=== PATIENT | male | born 1995 | race Caucasian/White ===

== ENCOUNTER 2020-04-02 14:57 | Emergency (ER) | payer BC, SELFPAY ==
[2020-04-02 15:08] VITALS: BP 135/79; PULSE 83; RESP 16; TEMP 36.4; O2SAT 97; BMI 19.2
--- NOTE | 2020-04-02 15:08 | W.ED.ABDPA2 ---
HPI - Abdominal Pain General: Chief Complaint: Abdominal Pain Stated Complaint: abd pain Time Seen by Provider: 04/02/20 15:08 Source: patient Mode of arrival: ambulatory Limitations: no limitations History of Present Illness: HPI narrative: 24-year-old male comes in today with periumbilical pain to the abdomen. Patient reports pain for about 3 days. Patient thought he might of strained a muscle because he was moving a heavy air conditioner 2 days ago. Patient appears well. Patient appears in mild to moderate pain. MD elicited complaint: abdominal pain Associated Symptoms: Reports nausea Review of Systems General: Reports: 10 or more systems reviewed and unremarkable except in HPI and below GI: Reports: abdominal pain and nausea [facility] ED PFSH: Social History (Updated 04/02/20 @ 14:28 by Marylou Damon LPN) Smoking and tobacco status: current every day smoker smokeless tobacco Alcohol intake: never Physical Exam Const: COMMON NORMALS: no apparent distress and oriented x3 GENERAL APPEARANCE: cooperative HENMT: COMMON NORMALS: normocephalic, TM's normal bilaterally and external nose normal HEAD & SCALP: normal to inspection and normocephalic NOSE: external nose normal TYMPANIC MEMBRANE: TM's normal bilaterally MOUTH: oral and palatal mucosa normal THROAT: posterior oropharynx normal Eye: GENERAL EYE: normal appearance of both eyes Neck/C-Spine: COMMON NORMALS: full ROM Lymph: LYMPHATIC: no lymphadenopathy noted Chest: COMMONS NORMALS: inspection of chest normal Resp: COMMON NORMALS: normal respiratory effort EFFORT & INSPECTION: Yes able to speak in complete sentences Cardio: COMMON NORMALS: regular rate and regular rhythm RATE: regular rate RHYTHM: regular rhythm GI: AUSCULTATION: Yes normoactive bowel sounds PALPATION: Yes firm, Yes tender (periumbilical), No guarding and No rigid : COMMON NORMALS: Yes no CVA tenderness BLADDER/KIDNEY EXAM: Yes no CVA tenderness Back/Pelvis: COMMON NORMALS: no CVA tenderness and thoracic and lumbar spine normal to inspection Extremity: COMMON NORMALS: normal to inspection Neuro: COMMON NORMALS: oriented x3 and moves all extremities Psych: COMMON NORMALS: mental status grossly normal and cooperative Skin: COMMON NORMALS: no rashes or lesions noted GENERAL SKIN EXAM: no rashes or lesions noted Course Vital Signs: Vital signs: Vital Signs Temperature 97.6 F 04/02/20 15:08 Pulse Rate 83 04/02/20 15:08 Respiratory Rate 18 04/02/20 15:26 Blood Pressure 135/79 04/02/20 15:08 Pulse Oximetry 98 04/02/20 15:26 MDM - Abdominal Pain MDM Narrative: Medical decision making narrative: Patient comes in today for concerns of abdominal pain. Patient was seen at urgent care and was referred to the ER for further evaluation with concern of appendicitis. Patient reports nausea with the abdominal pain. Exam notes periumbilical tenderness. Normal bowel sounds. Vital signs are normal. Differential diagnosis includes appendicitis, renal calculi, cystitis, hernia, muscle strain. CT scan of the abdomen and pelvis was normal. Laboratory values were normal. Reviewed this with patient with recommendations for treatment for muscle strain. History of patient does report some heavy lifting that was new to patient over the last few days. Discussed with patient treatment with Tylenol and ibuprofen and then monitor for worsening signs and symptoms and high fever. Patient reports understanding and agreed to plan. Lab Data: Labs: Lab Results 04/02/20 04/02/20 04/02/20 Range/Units 15:24 15:29 15:29 WBC 7.0 (4.0-10.0) 10^3/ uL RBC 5.28 (4.1-5.3) 10^6/u L Hgb 15.7 (11.7-16.6) g/dL Hct 48.8 (42.0-52.0) % MCV 92.4 (80-94) fL MCH 29.7 (28.0-34.0) pg MCHC 32.2 (30.0-36.0) g/dL RDW 12.1 (12.1-15.1) % Plt Count 271 (130-400) 10^3/c mm MPV 9.5 (7.4-10.4) fL Neut % (Auto) 59.8 % Lymph % (Auto) 23.2 % [place] % (Auto) 8.6 % Eos % (Auto) 7.4 % Baso % (Auto) 0.9 % Neut # (Auto) 4.2 (1.8-7.7) 10^3/u L Lymph # (Auto) 1.6 (0.8-4.8) 10^3/u L [place] # (Auto) 0.6 (0.2-0.9) 10^3/u L Eos # (Auto) 0.5 (0.0-0.8) 10^3/u L Baso # (Auto) 0.1 (0.0-0.1) 10^3/u L Nucleated RBC % (a uto) 0 % Nucleated RBCs # 0.0 /100WBC Sodium 138 (136-145) mmol/L Potassium 4.1 (3.5-5.1) mmol/L Chloride 98 (98-107) mmol/L Carbon Dioxide 29 (22-29) mmol/L Anion Gap 15.1 (5-19) BUN 13 (6-20) mg/dL Creatinine 0.9 (0.7-1.2) mg/dL GFR Calculation 102.8 (90-130) mL/min Glucose 92 (65-115) mg/dL Calculated Osmolal ity 282 L (285-295) mOsm/k g Calcium 9.4 (8.5-10.5) mg/dL Total Bilirubin 0.2 (0.15-1.2) mg/dL AST 17 (0-40) U/L ALT 11 (0-41) U/L Alkaline Phosphata se 57 (40-130) IU/L Total Protein 7.2 (6.6-8.7) g/dL Albumin 4.7 (3.5-5.2) g/dL Globulin 2.5 (1.3-4.6) g/dL Lipase 29 (13-60) U/L Urine Color Straw (Yellow) Urine Appearance Clear (CLEAR) Urine pH 6 (5-7) Ur Specific Gravit y 1.005 (1.005-1.030) Urine Protein Neg (Negative) Urine Glucose (UA) Norm (Normal) Urine Ketones Negative (Negative) Urine Blood Neg (Negative) Urine Nitrate Negative (Negative) Urine Bilirubin Neg (NEGATIVE) Urine Urobilinogen Norm (Negative) mg/dL Ur Leukocyte Chanda ase Negative (Negative) Discharge Plan Discharge Patient Disposition: Home, Self-Care Clinical Impression: Abdominal pain, Muscle strain Condition: Stable Prescriptions: No Action carbamazepine [Tegretol XR] 200 mg tablet extended release 12 hr 200 mg PO BID RF: 0 Discharge Orders: Discharge Order (Routine); Ordered 04/02/20 Ordered By: Ramiro Hanson Referrals: Pierce Lopez MD [Primary Care Provider] - Discharge Diet: Usual diet Discharge Activity: Increase activity as tolerated Patient Instructions: Cholecystitis (ED), Abdominal Pain (ED) Activity Restrictions/Additional Instructions: Use Tylenol and ibuprofen as needed for pain. Drink plenty of water with medication. Activity as tolerated. Try to avoid straining or heavy lifting for the next week. Return to the ER for high fever or worsening symptoms. Follow-up with primary care in 1 week. Coding Level of Care Code ED Calibration Specialist for Karen Fwjosé Exam Comprehensive
--- NOTE | 2020-04-02 15:14 | CT_ITS ---
WS: [id number] CT ABDOMEN PELVIS TECHNIQUE: Contrast-enhanced CT of the abdomen and pelvis with coronal and sagittal reformatted image s. CLINICAL INFORMATION: periumbilical pain, nausea COMPARISON: None. DLP: 548.[address] scans at [facility] use at least one of these dose optimization techniques: automat ed exposure control; mA and/or kV adjustment per patient size (includes targeted exams where dose is matched to clinical indication); or iterative reconstruction. FINDINGS: Normal liver. Normal splenic vein and portal veins. Gallbladder is contracted. Normal GE junction. No rmal spleen. Adrenal glands are normal. Normal renal parenchymal enhancement. No hydronephrosis. Norm al pancreas. Normal caliber abdominal aorta. Lung bases are well aerated. Incidental bone island left ilium adjacent to the SI joint. No evidence of small or large bowel obstruction. No evidence of acute appendicitis. Appendix is air-filled and no rmal. No periaortic or pelvic lymphadenopathy. No inguinal lymphadenopathy. No free fluid in the pelv is. CT/CT abdomen pelvis w con* [id number] IMPRESSION: 1. No evidence of acute appendicitis. Appendix appears normal and air-filled. 2. No free fluid in the pelvis. 3. Normal bilateral renal parenchymal . No hydronephrosis. 4. Mild diffuse fatty infiltration liver. Gallbladder is contracted. 5. No acute appearing abdomen or pelvic findings.
[2020-04-02 15:26] VITALS: RESP 18; O2SAT 98
[2020-04-02 15:38] LABS: Basophils # 0.1 10^3/uL (0.0-0.1); Basophils % 0.9 %; Eosinophils # 0.5 10^3/uL (0.0-0.8); Eosinophils % 7.4 %; Hematocrit 48.8 % (42.0-52.0); Hemoglobin 15.7 g/dL (11.7-16.6); Lymphocytes # 1.6 10^3/uL (0.8-4.8); Lymphocytes % 23.2 %; Mean Corpuscular HGB Conc 32.2 g/dL (30.0-36.0); Mean Corpuscular Hemoglobin 29.7 pg (28.0-34.0); Mean Corpuscular Volume 92.4 fL (80-94); Mean Platelet Volume 9.5 fL (7.4-10.4); Monocytes # 0.6 10^3/uL (0.2-0.9); Monocytes % 8.6 %; Neutrophils # 4.2 10^3/uL (1.8-7.7); Neutrophils % 59.8 %; Nucleated Red Blood Cells % 0 %; Platelet Count 271 10^3/cmm (130-400); Red Blood Count 5.28 10^6/uL (4.1-5.3); Red Cell Distribution Width 12.1 % (12.1-15.1)
[2020-04-02] MEDS: iohexol 300 mg/mL 100 mL Btl IV (15:46)
[2020-04-02 15:54] LABS: Add Urine Microscopic? NO
[2020-04-02 15:59] LABS: Alanine Aminotransferase 11 U/L (0-41); Albumin Level 4.7 g/dL (3.5-5.2); Alkaline Phosphatase 57 IU/L (40-130); Anion Gap 15.1 (5-19); Aspartate Amino Transferase 17 U/L (0-40); Blood Urea Nitrogen 13 mg/dL (6-20); Calcium 9.4 mg/dL (8.5-10.5); Carbon Dioxide 29 mmol/L (22-29); Chloride 98 mmol/L (98-107); Globulin 2.5 g/dL (1.3-4.6); Glomerular Filtration Rate 102.8 mL/min (90-130); Glucose 92 mg/dL (65-115); Lipase 29 U/L (13-60); Osmolality Calculated 282 mOsm/kg (285-295); Potassium 4.1 mmol/L (3.5-5.1); Sodium 138 mmol/L (136-145); Total Bilirubin 0.2 mg/dL (0.15-1.2); Total Protein 7.2 g/dL (6.6-8.7)
[2020-04-02 16:01] LABS: Urine Appearance Clear (CLEAR); Urine Color Straw (Yellow)
[2020-04-02 16:02] LABS: Bilirubin Urine Neg (NEGATIVE); Blood Urine Neg (Negative); Glucose Urine UA Norm (Normal); Ketones Urine Negative (Negative); Leukocyte Esterase Urine Negative (Negative); Nitrate Urine Negative (Negative); Protein Urine Neg (Negative); Specific Gravity, Urine 1.005 (1.005-1.030); Urobilinogen Urine Norm (Negative); pH Urine 6 (5-7)
[2020-04-02 16:22] VITALS: BP 135/79; PULSE 83; RESP 15; O2SAT 97
== END 2020-04-02 16:23 | disposition home or self-care (01) ==
PROVIDERS: Emergency Provider Nurse Practitioner Family; PCP Family Medicine
DX: R10.9 Unspecified abdominal pain (principal); T14.8XXA Other injury of unspecified body region, initial encounter; X58.XXXA Exposure to other specified factors, initial encounter; F17.290 Nicotine dependence, other tobacco product, uncomplicated
CPT/HCPCS: 12345; 36415; 74177; 80053; 81000; 81003; 83690; 85025; 99282; 99283; A9270; Q9967

== ENCOUNTER 2020-04-20 21:12 | Emergency (ER) | payer BC, SELFPAY ==
[2020-04-20 21:22] VITALS: BP 142/82; PULSE 102; RESP 16; TEMP 37.2; O2SAT 96; BMI 19.2
--- NOTE | 2020-04-20 21:48 | CTR_ITS ---
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 Axial, coronal and sagittal reformatted images were created and reviewed. 3D rendering: MIP and/or 3D reconstructed images were created by the technologist. Radiation optimization: All CT scans at this facility use at least one of these dose optimization techniques: automated exposure control; mA and/or kV adjustment per patient size (includes targeted exams where dose is matched to clinical indication); or iterative reconstruction. Contrast material: OMNI 350; Contrast volume: 95 ml; Contrast route: 20G; COMPARISON: CT head wo con* [id number] 04/20/2020 10:10 PM RADIATION DOSE METRICS: Total DLP: 1603.96 mGy-cm FINDINGS: Anterior cerebral arteries: No occlusion or significant stenosis. No aneurysm. Right internal carotid artery: Intracranial segment is patent with no significant stenosis or occlusion. No aneurysm. Right middle cerebral artery: No occlusion or significant stenosis. No aneurysm. Right posterior cerebral artery: No occlusion or significant stenosis. No aneurysm. Right vertebral artery: No occlusion or significant stenosis. No aneurysm. Left internal carotid artery: Intracranial segment is patent with no significant stenosis or occlusion. No aneurysm. Left middle cerebral artery: No occlusion or significant stenosis. No aneurysm. Left posterior cerebral artery: No occlusion or significant stenosis. No aneurysm. Left vertebral artery: No occlusion or significant stenosis. No aneurysm. Basilar artery: No occlusion or significant stenosis. No aneurysm. IMPRESSION: No large vessel stenosis or occlusion. 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 Axial, coronal and sagittal reformatted images were created and reviewed. 3D rendering: MIP and/or 3D reconstructed images were created by the technologist. Radiation optimization: All CT scans at this facility use at least one of these dose optimization techniques: automated exposure control; mA and/or kV adjustment per patient size (includes targeted exams where dose is matched to clinical indication); or iterative reconstruction. Contrast material: OMNI 350; Contrast volume: 95 ml; Contrast route: 20G; COMPARISON: CT head wo con* [id number] 04/20/2020 10:10 PM RADIATION DOSE METRICS: Total DLP: 1603.96 mGy-cm FINDINGS: Right common carotid artery: No stenosis. No dissection or occlusion. Right internal carotid artery: Normal. Extracranial segment patent with no significant stenosis. No dissection or occlusion. Right external carotid artery: No occlusion or stenosis of the origin. Right vertebral artery: No stenosis. No dissection or occlusion. Left common carotid artery: No stenosis. No dissection or occlusion. Left internal carotid artery: Normal. Extracranial segment patent with no significant stenosis. No dissection or occlusion. Left external carotid artery: No occlusion or stenosis of the origin. Left vertebral artery: No stenosis. No dissection or occlusion. Bones/joints: No acute osseous abnormality. Soft tissues: Unremarkable. CT/CT angio headneck* [id number] IMPRESSION: No stenosis or occlusion. REFERENCES: NASCET CRITERIA. The degree of internal carotid artery stenosis is based on NASCET criteria. Normal is no stenosis. Mild is less than 50% stenosis. Moderate is 50-69% stenosis. Severe is 70% to 99% stenosis. Total occlusion is no detectable patent lumen. Radiation Dose CTDIVOL = (mGy): DLP = 1603.96~1603.96 (mGy-cm)
--- NOTE | 2020-04-20 21:51 | W.ED.GENADLT ---
Documented by User: Janeth Villa MD 04/21/20 20:35 HPI - General Adult General: Chief complaint: General Medical Stated complaint: r side numbness Time Seen by Provider: 04/20/20 21:30 History of Present Illness: HPI narrative: Patient is a 24-year-old male presenting with complaints of numbness on the right side of his body. 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 He said at that time they wanted to do surgery on it but he was afraid to have the surgery so they have just been monitoring it on a yearly basis. His first MRI was done in [facility]. He has had one done in [place]. The most recent one was done in [place] at [facility] and was ordered by Dr. Cruz - neurosurgeon. The patient reports that he started having numbness in his right foot this morning. It has been going on all day. A few hours ago he developed numbness on the right side of his trunk. He said the symptoms he had 4 years ago when this was first diagnosed were similar but he did not have the numbness in his foot. 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 He had surgery on 1 of them due to seizures. He has not had a seizure in 9 years. He has no other symptoms today. He does take carbamazepine and pantoprazole. He was recently started on the pantoprazole after an ER visit for abdominal pain. Associated symptoms: Deny chest pain, dyspnea, headache(s), malaise, nausea, rash or vomiting Review of Systems General: Reports: 10 or more systems reviewed and unremarkable except in HPI and below Const: Denies: fever(s), chills, fatigue or malaise Eyes: Denies: change in vision ENMT: Denies: odynophagia Card: Denies: chest pain or swelling of feet/ankles Resp: Denies: dyspnea, productive cough or non-productive cough GI: Denies: abdominal pain, nausea or vomiting : Denies: flank pain Musc: Denies: neck pain or back pain Skin/Breast: Denies: rash Neuro: Reports: numbness in extremities; Denies: headache(s) or weakness in extremities Antonio/Lymph: Denies: easy bruising or easy bleeding [facility] ED PFSH: Family History Grandfather Cancer Grandmother Diabetes Social History Smoking and tobacco status: never smoked Alcohol intake: never Marital status: Single Current occupational status: employed Physical Exam Const: COMMON NORMALS: no acute distress, patient oriented x3, no limitations and alert GENERAL APPEARANCE: cooperative and comfortable HENMT: HEAD & SCALP: normal to inspection FACE & SINUS: normal facial exam Eye: GENERAL EYE: appearance normal, both eyes and all related structures Neck/C-Spine: COMMON NORMALS: supple, no meningeal signs and no JVD Chest: COMMONS NORMALS: normal inspection of the chest Resp: COMMON NORMALS: normal respiratory effort, No use of accessory muscles and clear to auscultation bilaterally AUSCULTATION: clear to auscultation bilaterally Cardio: COMMON NORMALS: no JVD, regular rate, regular rhythm and No murmurs present (Cardio) RATE: regular rate RHYTHM: regular rhythm GI: COMMON NORMALS: Normal to inspection, nondistended, normoactive bowel sounds present, Soft to palpation and non-tender INSPECTION: Yes normal to inspection AUSCULTATION: Yes normoactive bowel sounds PALPATION: Yes Soft to palpation Back/Pelvis: COMMON NORMALS: thoracic and lumbar spine normal to inspection Extremity: COMMON NORMALS: normal to inspection Neuro: COMMON NORMALS: patient oriented x3, moves all extremities and no focal motor deficits SENSORIUM/ORIENTATION: Yes alert MENINGEAL SIGNS: Yes no meningeal signs OTHER: Patient notes decreased sensation mostly on the medial aspect of his lower leg starting just above his knee and going down encompassing his entire foot. He also describes decreased sensation over the right side of his back and lateral rib cage from the scapula to the top of the iliac crest. He has no abnormal sensation or movement in his arm. Psych: COMMON NORMALS: mental status grossly normal, cooperative and normal affect Skin: COMMON NORMALS: no rashes or lesions noted and turgor normal GENERAL SKIN EXAM: no rashes or lesions noted and turgor normal Course Vital Signs: Vital signs: Vital Signs Temperature 98.9 F 04/20/20 21:22 Pulse Rate 66 04/21/20 00:20 Respiratory Rate 16 04/21/20 00:20 Blood Pressure 113/72 04/21/20 00:20 Pulse Oximetry 97 04/21/20 00:[address] [facility] - General Adult Lab Data: Labs: Lab Results 04/20/20 04/20/20 Range/Units 21:52 21:52 WBC 6.2 (4.0-10.0) 10^3/ uL RBC 4.39 (4.1-5.3) 10^6/u L Hgb 13.5 (11.7-16.6) g/dL Hct 40.5 L (42.0-52.0) % MCV 92.3 (80-94) fL MCH 30.8 (28.0-34.0) pg MCHC 33.3 (30.0-36.0) g/dL RDW 11.9 L (12.1-15.1) % Plt Count 243 (130-400) 10^3/c mm MPV 9.2 (7.4-10.4) fL Neut % (Auto) 58.9 % Lymph % (Auto) 24.4 % [place] % (Auto) 11.5 % Eos % (Auto) 4.5 % Baso % (Auto) 0.5 % Neut # (Auto) 3.7 (1.8-7.7) 10^3/u L Lymph # (Auto) 1.5 (0.8-4.8) 10^3/u L [place] # (Auto) 0.7 (0.2-0.9) 10^3/u L Eos # (Auto) 0.3 (0.0-0.8) 10^3/u L Baso # (Auto) 0.0 (0.0-0.1) 10^3/u L Nucleated RBC % (a uto) 0 % Nucleated RBCs # 0.0 /100WBC Sodium 143 (136-145) mmol/L Potassium 3.4 L (3.5-5.1) mmol/L Chloride 105 (98-107) mmol/L Carbon Dioxide 27 (22-29) mmol/L Anion Gap 14.4 (5-19) BUN 11 (6-20) mg/dL Creatinine 0.9 (0.7-1.2) mg/dL GFR Calculation 102.8 (90-130) mL/min Glucose 118 H (65-115) mg/dL Calculated Osmolal ity 293 (285-295) mOsm/k g Calcium 9.6 (8.5-10.5) mg/dL Total Bilirubin 0.2 (0.15-1.2) mg/dL AST 14 (0-40) U/L ALT 8 (0-41) U/L Alkaline Phosphata se 49 (40-130) IU/L Total Protein 6.5 L (6.6-8.7) g/dL Albumin 4.2 (3.5-5.2) g/dL Globulin 2.3 (1.3-4.6) g/dL Discharge Plan Discharge Patient Disposition: Home, Self-Care Clinical Impression: Paresthesia Condition: Stable Prescriptions: New Medrol (Chris) 4 mg tablets,dose pack See Rx Instructions .ROUTE .COMPLEX Qty: 21 RF: 0 No Action carbamazepine [Tegretol XR] 200 mg tablet extended release 12 hr 200 mg PO BID RF: 0 pantoprazole 40 mg tablet,delayed release (DR/EC) 40 mg PO QAM Qty: 90 RF: 3 Discharge Orders: Discharge Order (Routine); Ordered 04/20/20 Ordered By: Chance Bailey Referrals: Pierce Lopez MD [Primary Care Provider] - 4-7 days Discharge Diet: Usual diet Discharge Activity: Increase activity as tolerated Patient Instructions: Paresthesia (ED) Activity Restrictions/Additional Instructions: Return for progressive numbness despite treatment, weakness, other concerning symptoms. See your neurosurgeon in follow-up. Discharge Date/Time: 04/21/20 00:22 Coding Level of Care Code ED Travel Sales Consultant for Chg Fwd Exam Comprehensive Documented by User: Chance Bailey DO 04/21/20 00:51 HPI - General Adult General: Chief complaint: General Medical Stated complaint: r side numbness Time Seen by Provider: 04/20/20 21:30 PFSH ED PFSH: Family History Grandfather Cancer Grandmother Diabetes Social History Smoking and tobacco status: never smoked Alcohol intake: never Marital status: Single Current occupational status: employed Course Vital Signs: Vital signs: Vital Signs Temperature 98.9 F 04/20/20 21:22 Pulse Rate 66 04/21/20 00:20 Respiratory Rate 16 04/21/20 00:20 Blood Pressure 113/72 04/21/20 00:20 Pulse Oximetry 97 04/21/20 00:20 MDM - General Adult MDM Narrative: Medical decision making narrative: 24-year-old male with the above history. He was checked out to me by Dr. Villa at shift change. This was to follow-up on his CT of the head, as well as his CTA of the head and neck. They did not show any significant stenosis or problem with his AVM history. He is simply having paresthesias at this point. We will try decreasing dose of steroid over the next couple of days for his symptoms. He has neurosurgery follow-up and was counseled on close follow-up with them. Lab Data: Labs: Lab Results 04/20/20 04/20/20 Range/Units 21:52 21:52 WBC 6.2 (4.0-10.0) 10^3/ uL RBC 4.39 (4.1-5.3) 10^6/u L Hgb 13.5 (11.7-16.6) g/dL Hct 40.5 L (42.0-52.0) % MCV 92.3 (80-94) fL MCH 30.8 (28.0-34.0) pg MCHC 33.3 (30.0-36.0) g/dL RDW 11.9 L (12.1-15.1) % Plt Count 243 (130-400) 10^3/c mm MPV 9.2 (7.4-10.4) fL Neut % (Auto) 58.9 % Lymph % (Auto) 24.4 % [place] % (Auto) 11.5 % Eos % (Auto) 4.5 % Baso % (Auto) 0.5 % Neut # (Auto) 3.7 (1.8-7.7) 10^3/u L Lymph # (Auto) 1.5 (0.8-4.8) 10^3/u L [place] # (Auto) 0.7 (0.2-0.9) 10^3/u L Eos # (Auto) 0.3 (0.0-0.8) 10^3/u L Baso # (Auto) 0.0 (0.0-0.1) 10^3/u L Nucleated RBC % (a uto) 0 % Nucleated RBCs # 0.0 /100WBC Sodium 143 (136-145) mmol/L Potassium 3.4 L (3.5-5.1) mmol/L Chloride 105 (98-107) mmol/L Carbon Dioxide 27 (22-29) mmol/L Anion Gap 14.4 (5-19) BUN 11 (6-20) mg/dL Creatinine 0.9 (0.7-1.2) mg/dL GFR Calculation 102.8 (90-130) mL/min Glucose 118 H (65-115) mg/dL Calculated Osmolal ity 293 (285-295) mOsm/k g Calcium 9.6 (8.5-10.5) mg/dL Total Bilirubin 0.2 (0.15-1.2) mg/dL AST 14 (0-40) U/L ALT 8 (0-41) U/L Alkaline Phosphata se 49 (40-130) IU/L Total Protein 6.5 L (6.6-8.7) g/dL Albumin 4.2 (3.5-5.2) g/dL Globulin 2.3 (1.3-4.6) g/dL Discharge Plan Discharge Patient Disposition: Home, Self-Care Clinical Impression: Paresthesia Condition: Stable Prescriptions: New Medrol (Chris) 4 mg tablets,dose pack See Rx Instructions .ROUTE .COMPLEX Qty: 21 RF: 0 No Action carbamazepine [Tegretol XR] 200 mg tablet extended release 12 hr 200 mg PO BID RF: 0 pantoprazole 40 mg tablet,delayed release (DR/EC) 40 mg PO QAM Qty: 90 RF: 3 Discharge Orders: Discharge Order (Routine); Ordered 04/20/20 Ordered By: Chance Bailey Referrals: Pierec Lopez MD [Primary Care Provider] - 4-7 days Discharge Diet: Usual diet Discharge Activity: Increase activity as tolerated Patient Instructions: Paresthesia (ED) Activity Restrictions/Additional Instructions: Return for progressive numbness despite treatment, weakness, other concerning symptoms. See your neurosurgeon in follow-up. Discharge Date/Time: 04/21/20 00:22 Coding Level of Care Code ED Travel Sales Consultant for Karen Fwd Exam Comprehensive
--- NOTE | 2020-04-20 21:54 | CTR_ITS ---
PROCEDURE INFORMATION: Exam: CT Head Without Contrast Exam date and time: 04/20/2020 10:03 PM Age: 24 years old Clinical indication: Numbness / parasthesia; Right; Prior surgery; Surgery date: 6+ months; Surgery type: Craniotomy for avm; Patient HX: C/O R sided numbness TECHNIQUE: Imaging protocol: Computed tomography of the head without contrast. Axial, coronal and sagittal reformatted images were created and reviewed. Radiation optimization: All CT scans at this facility use at least one of these dose optimization techniques: automated exposure control; mA and/or kV adjustment per patient size (includes targeted exams where dose is matched to clinical indication); or iterative reconstruction. COMPARISON: US Soft Tissue Head Neck [id number] 06/04/2019 10:06 PM RADIATION DOSE METRICS: Total DLP: 870.2 mGy-cm FINDINGS: Brain: Multiple scattered areas of ill-defined, predominantly rounded/ovoid hyperattenuation, predominantly supratentorial but also in the right parasagittal devin, measuring up to approximately 2.9 x 2.2 cm in the right parietal lobe. Left frontal and left temporal encephalomalacia. No CT evidence of acute territorial infarction. No significant mass effect or midline shift. Basal cisterns patent. Ventricles: Normal in size and configuration. Cavum septum pellucidum. Bones/joints: No acute osseous abnormality. Postsurgical changes associated with prior left frontal craniotomy. Chronic deformity of the left temporal bone. Sinuses: Mild ethmoid mucosal thickening. Mastoid air cells: Grossly unremarkable. Soft tissues: Grossly unremarkable. CT/CT head wo con* [id number] IMPRESSION: 1. Multiple scattered areas of ill-defined, predominantly rounded/ovoid hyperattenuation, as described above. 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 Associated intralesional/perilesional blood products cannot be entirely excluded. Metastatic disease is considered unlikely given the patient's age but could produce a similar appearance. Comparison with the patient's prior imaging is recommended to assess for any interval change. 2. Additional findings, as above. Radiation Dose CTDIVOL = (mGy): DLP = 870.2 (mGy-cm)
[2020-04-20 21:58] LABS: Basophils % 0.5 %; Eosinophils # 0.3 10^3/uL (0.0-0.8); Eosinophils % 4.5 %; Hematocrit 40.5 % (42.0-52.0); Hemoglobin 13.5 g/dL (11.7-16.6); Lymphocytes # 1.5 10^3/uL (0.8-4.8); Lymphocytes % 24.4 %; Mean Corpuscular HGB Conc 33.3 g/dL (30.0-36.0); Mean Corpuscular Hemoglobin 30.8 pg (28.0-34.0); Mean Corpuscular Volume 92.3 fL (80-94); Mean Platelet Volume 9.2 fL (7.4-10.4); Monocytes # 0.7 10^3/uL (0.2-0.9); Monocytes % 11.5 %; Neutrophils # 3.7 10^3/uL (1.8-7.7); Neutrophils % 58.9 %; Nucleated Red Blood Cells % 0 %; Platelet Count 243 10^3/cmm (130-400); Red Blood Count 4.39 10^6/uL (4.1-5.3); Red Cell Distribution Width 11.9 % (12.1-15.1); White Blood Count 6.2 10^3/uL (4.0-10.0)
[2020-04-20 22:18] LABS: Alanine Aminotransferase 8 U/L (0-41); Albumin Level 4.2 g/dL (3.5-5.2); Alkaline Phosphatase 49 IU/L (40-130); Anion Gap 14.4 (5-19); Aspartate Amino Transferase 14 U/L (0-40); Blood Urea Nitrogen 11 mg/dL (6-20); Calcium 9.6 mg/dL (8.5-10.5); Carbon Dioxide 27 mmol/L (22-29); Chloride 105 mmol/L (98-107); Globulin 2.3 g/dL (1.3-4.6); Glomerular Filtration Rate 102.8 mL/min (90-130); Glucose 118 mg/dL (65-115); Osmolality Calculated 293 mOsm/kg (285-295); Potassium 3.4 mmol/L (3.5-5.1); Sodium 143 mmol/L (136-145); Total Bilirubin 0.2 mg/dL (0.15-1.2); Total Protein 6.5 g/dL (6.6-8.7)
[2020-04-20] MEDS: iohexol 350 mg/mL 100 mL Btl IV (22:28)
[2020-04-20 22:56] VITALS: BP 110/63; PULSE 65; RESP 16; O2SAT 100
[2020-04-21] MEDS: dexamethasone 4 mg/mL INJ 8 MG IVP (00:02)
[2020-04-21 00:20] VITALS: BP 113/72; PULSE 66; RESP 16; O2SAT 97
== END 2020-04-21 00:22 | disposition home or self-care (01) ==
PROVIDERS: Emergency Medicine; Emergency Provider Emergency Medicine; PCP Family Medicine
DX: R20.2 Paresthesia of skin (principal)
CPT/HCPCS: 12345; 70450; 70496; 70498; 80053; 85025; 96374; 96375; 99282; 99283; J1100; Q9967

== ENCOUNTER 2020-04-22 20:41 | Emergency (ER) | payer BC, SELFPAY ==
[2020-04-22 21:02] VITALS: PULSE 116; RESP 18; TEMP 36.9; O2SAT 96; BMI 19.2
--- NOTE | 2020-04-22 21:20 | ED_ITS ---
HPI - Weakness General: Chief complaint: Weakness Stated complaint: numbness Time Seen by Provider: 04/22/20 21:12 Source: patient Mode of arrival: ambulatory Limitations: no limitations History of Present Illness: HPI Narrative: 24-year-old male who was seen here paresthesias 2 days ago. He has a history of callus in his cervical spine years ago and gets intermittent numbness. Patient has an appointment with his neurosurgeon next week. He states that he had increasing numbness in his right leg and across his chest. He denies any back pain. He states he has paraspinal neck pain currently rates a 3 out of 10. Denies any headache. He denies any worsening or improving factors. Denies any fevers. MD Complaint: generalized weakness Onset (ago): day(s) Associated symptoms: Denies chest pain, chills, dysuria, easy bruising, fever(s), headache(s), nausea or vomiting Review of Systems Const: Denies: fever(s), chills, body aches or change in appetite Eyes: Denies: blurry vision or eye discomfort ENMT: Denies: throat pain or dental pain Card: Denies: chest pain Resp: Denies: dyspnea GI: Denies: abdominal pain, nausea, vomiting or diarrhea : Denies: dysuria Musc: Denies: neck pain or back pain Skin/Breast: Denies: rash Neuro: Reports: numbness in extremities; Denies: headache(s) Psych: Denies: depression Antonio/Lymph: Denies: easy bruising All/Imm: Denies: urticaria PFSH ED PFSH: Family History Grandfather Cancer Grandmother Diabetes Social History Smoking and tobacco status: never smoked Alcohol intake: never Marital status: Single Current occupational status: employed Physical Exam Const: COMMON NORMALS: no acute distress, patient oriented x3 and healthy appearing HENMT: COMMON NORMALS: normocephalic and atraumatic HEAD & SCALP: normocephalic and atraumatic Eye: COMMON NORMALS: Equal, round and reactive pupils present and EOMs intact bilaterally PUPIL: Yes Equal, round and reactive pupils present Neck/C-Spine: COMMON NORMALS: full ROM and supple Chest: COMMONS NORMALS: normal inspection of the chest and normal palpation of entire chest wall Resp: COMMON NORMALS: normal respiratory effort, No retractions, No use of accessory muscles and clear to auscultation bilaterally AUSCULTATION: clear to auscultation bilaterally Cardio: COMMON NORMALS: regular rate, regular rhythm and No murmurs present (Cardio) RATE: regular rate RHYTHM: regular rhythm GI: COMMON NORMALS: Normal to inspection, nondistended, normoactive bowel sounds present, Soft to palpation, non-tender and no masses PALPATION: Yes Soft to palpation Extremity: COMMON NORMALS: normal to inspection and full ROM Neuro: COMMON NORMALS: patient oriented x3, moves all extremities and no focal motor deficits Psych: COMMON NORMALS: mental status grossly normal, Normal thought process present and cooperative THOUGHT PROCESS: Normal thought process present Skin: COMMON NORMALS: no rashes or lesions noted and no wounds GENERAL SKIN EXAM: no rashes or lesions noted Course Vital Signs: Vital signs: Vital Signs Temperature 98.4 F 04/22/20 21:02 Pulse Rate 116 H 04/22/20 21:02 Respiratory Rate 18 04/22/20 21:02 Pulse Oximetry 96 04/22/20 21:02 MDM - Weakness MDM Narrative: Medical decision making narrative: Patient presents here with paresthesias in his leg along with chest along with neck pain. He has no low back pain and no signs of acute cord compression. Patient does not require an emergent MRI. Patient had a CT 2 days ago it was normal. Patient is stable for discharge and is to follow-up with his neurologist as scheduled and also we will try to get him neurosurgery follow-up here. Patient is to return if worsening. He understands and agrees to plan. Lab Data: Labs: Lab Results 04/22/20 04/22/20 Range/Units 21:38 21:38 WBC 7.2 (4.0-10.0) 10^3/ uL RBC 4.50 (4.1-5.3) 10^6/u L Hgb 13.6 (11.7-16.6) g/dL Hct 41.3 L (42.0-52.0) % MCV 91.8 (80-94) fL MCH 30.2 (28.0-34.0) pg MCHC 32.9 (30.0-36.0) g/dL RDW 12.0 L (12.1-15.1) % Plt Count 249 (130-400) 10^3/c mm MPV 9.4 (7.4-10.4) fL Neut % (Auto) 68.2 % Lymph % (Auto) 23.1 % [place] % (Auto) 7.8 % Eos % (Auto) 0.4 % Baso % (Auto) 0.4 % Neut # (Auto) 4.9 (1.8-7.7) 10^3/u L Lymph # (Auto) 1.7 (0.8-4.8) 10^3/u L [place] # (Auto) 0.6 (0.2-0.9) 10^3/u L Eos # (Auto) 0.0 (0.0-0.8) 10^3/u L Baso # (Auto) 0.0 (0.0-0.1) 10^3/u L Nucleated RBC % (a uto) 0 % Nucleated RBCs # 0.0 /100WBC Sodium 141 (136-145) mmol/L Potassium 3.6 (3.5-5.1) mmol/L Chloride 101 (98-107) mmol/L Carbon Dioxide 28 (22-29) mmol/L Anion Gap 15.6 (5-19) BUN 13 (6-20) mg/dL Creatinine 1.0 (0.7-1.2) mg/dL GFR Calculation 91.0 (90-130) mL/min Glucose 105 (65-115) mg/dL Calculated Osmolal ity 289 (285-295) mOsm/k g Calcium 8.8 (8.5-10.5) mg/dL Discharge Plan Discharge Patient Disposition: Home, Self-Care Clinical Impression: Paresthesia Condition: Stable Prescriptions: No Action carbamazepine [Tegretol XR] 200 mg tablet extended release 12 hr 200 mg PO BID RF: 0 pantoprazole 40 mg tablet,delayed release (DR/EC) 40 mg PO QAM Qty: 90 RF: 3 ibuprofen 200 mg Tablet 200 mg PO Q6H PRN (Reason: Pain) RF: 0 methylprednisolone [Medrol (Chris)] 4 mg tablets,dose pack See Rx Instructions .ROUTE .COMPLEX Qty: 21 RF: 0 Discharge Orders: Discharge Order (Routine); Ordered 04/22/20 Ordered By: Tasha Benton Referrals: Pierce Lopez MD [Primary Care Provider] - Sukumar Vivar MD [Physician] - 1-3 days Discharge Diet: Advance as tolerated Discharge Activity: Resume usual activity Patient Instructions: Paresthesia (ED) Coding Level of Care Code ED Carpenter Repairer for Chg Fwd Exam Comprehensive
[2020-04-22 21:44] LABS: Basophils % 0.4 %; Eosinophils % 0.4 %; Hematocrit 41.3 % (42.0-52.0); Hemoglobin 13.6 g/dL (11.7-16.6); Lymphocytes # 1.7 10^3/uL (0.8-4.8); Lymphocytes % 23.1 %; Mean Corpuscular HGB Conc 32.9 g/dL (30.0-36.0); Mean Corpuscular Hemoglobin 30.2 pg (28.0-34.0); Mean Corpuscular Volume 91.8 fL (80-94); Mean Platelet Volume 9.4 fL (7.4-10.4); Monocytes # 0.6 10^3/uL (0.2-0.9); Monocytes % 7.8 %; Neutrophils # 4.9 10^3/uL (1.8-7.7); Neutrophils % 68.2 %; Nucleated Red Blood Cells % 0 %; Platelet Count 249 10^3/cmm (130-400); White Blood Count 7.2 10^3/uL (4.0-10.0)
[2020-04-22 22:02] LABS: Anion Gap 15.6 (5-19); Blood Urea Nitrogen 13 mg/dL (6-20); Calcium 8.8 mg/dL (8.5-10.5); Carbon Dioxide 28 mmol/L (22-29); Chloride 101 mmol/L (98-107); Glucose 105 mg/dL (65-115); Osmolality Calculated 289 mOsm/kg (285-295); Potassium 3.6 mmol/L (3.5-5.1); Sodium 141 mmol/L (136-145)
[2020-04-22] MEDS: diphenhydrAMINE 50 mg/mL SDV 1mL IVP (22:13)
[2020-04-22] MEDS: metoclopramide 5 mg/mL SDV 2 mL 10 MG IVP (22:13)
[2020-04-22] MEDS: LORazepam 2 mg/mL INJ 1 mL 1 MG IVP (22:33)
[2020-04-22 22:58] VITALS: BP 109/70; PULSE 84; RESP 16; O2SAT 97
--- NOTE | 2020-04-24 08:43 | DCPLANNER ---
physical plant manager had message to schedule a follow up appointment for patient with Dr. Vivar. physical plant manager called [facility], spoke with Raysa, gave clinic patients information. physical plant manager was told that patients information would be printed and given to Kendell for review. Clinic will call caseworker intake and patient with appointment information.
--- NOTE | 2020-04-29 09:13 | DCPLANNER ---
Kendell from ortho called porter sample case stating that patient declined referral to Dr. Valero office.
== END 2020-04-22 23:00 | disposition home or self-care (01) ==
PROVIDERS: Emergency Provider Emergency Medicine; PCP Family Medicine
DX: R20.2 Paresthesia of skin (principal)
CPT/HCPCS: 12345; 36415; 80048; 85025; 96374; 96375; 99282; 99283; J1200; J2060; J2765

== ENCOUNTER 2021-01-09 23:15 | Emergency (ER) | payer OTHER, SELFPAY ==
[2021-01-09 23:34] VITALS: BP 124/87; PULSE 84; RESP 16; TEMP 37.2; O2SAT 97; BMI 20.7
--- NOTE | 2021-01-09 23:58 | XRR_ITS ---
PROCEDURE INFORMATION: Exam: XR Chest, 1 View Exam date and time: 01/09/2021 11:59 PM Age: 25 years old Clinical indication: Cough; Patient HX: Covid symptoms TECHNIQUE: Imaging protocol: XR of the chest Views: 1 view. COMPARISON: CR Chest 2 views* [id number] 11/04/2019 6:52 PM FINDINGS: Lungs: Well inflated and clear. Pleural spaces: Unremarkable. No pleural effusion. No pneumothorax. Heart/Mediastinum: The cardiac shadow is normal in size. Bones/joints: No acute abnormality. XR/XR chest 1V portable [id number] IMPRESSION: No acute findings.
--- NOTE | 2021-01-09 23:59 | W.ED.COVID ---
HPI - COVID General: Chief Complaint: COVID symptoms Stated Complaint: covid symptoms/congestion/headache Time Seen by Provider: 01/09/21 23:40 Triage information: Has fever, cough or shortness of breath. No known COVID + exposure last 14 days History of Present Illness: HPI Narrative: Patient is a 25-year-old male comes to the ED with Covid symptoms. He has nasal congestion and drainage along with no sense of taste or smell. Symptoms started about 4 days ago. He is here to get tested for his work and he says he has a 8-month-old at home that is having similar symptoms. Denies any fever, chills, sore throat, cough, chest pain, shortness of breath, nausea/vomiting, abdominal pain, bladder or bowel symptoms. COVID 19 common symptoms: positive nasal congestion; negative fever(s), chills, non-productive cough, productive cough, dyspnea, fatigue, headache(s), throat pain, nausea, vomiting or diarrhea COVID 19 other sytmptoms: negative chest pain COVID Results: No Data to Display Review of Systems Const: Denies: fever(s), chills or fatigue Eyes: Denies: change in vision or eye discomfort ENMT: Reports: nasal discharge, nasal congestion and other (loss of taste and smell); Denies: throat pain or odynophagia Card: Denies: chest pain, palpitations, edema, swelling of feet/ankles, dyspnea on exertion or orthopnea Resp: Denies: dyspnea, productive cough or non-productive cough GI: Denies: abdominal pain, nausea, vomiting, diarrhea, constipation or hematochezia : Denies: flank pain, difficulty urinating, dysuria or hematuria Musc: Denies: neck pain, back pain or extremity swelling Skin/Breast: Denies: rash or new lesions Neuro: Denies: headache(s), numbness in extremities or weakness in extremities PFSH ED PFSH: Family History Grandfather Cancer Grandmother Diabetes Social History Smoking and tobacco status: never smoked Alcohol intake: never Marital status: Single Current occupational status: employed Physical Exam Const: COMMON NORMALS: no acute distress, patient oriented x3, healthy appearing and alert GENERAL APPEARANCE: cooperative and comfortable HENMT: COMMON NORMALS: normocephalic HEAD & SCALP: normocephalic NOSE: Nasal discharge present clear MOUTH: Normal oral and palatal mucosa present THROAT: posterior oropharynx normal and uvula midline Neck/C-Spine: COMMON NORMALS: supple GENERAL: Yes normal visual inspection Resp: COMMON NORMALS: normal respiratory effort, No retractions, No use of accessory muscles and clear to auscultation bilaterally EFFORT & INSPECTION: Yes able to speak in complete sentences, No tachypneic, No respiratory distress and No labored AUSCULTATION: clear to auscultation bilaterally Cardio: COMMON NORMALS: regular rate, regular rhythm, S1 normal heart sound present, S2 normal heart sound present, No gallops present (Cardio), No clicks present (Cardio), No murmurs present (Cardio) and Peripheral pulses 2+ throughout RATE: regular rate RHYTHM: regular rhythm HEART SOUNDS: S1 normal heart sound present and S2 normal heart sound present PERIPHERAL PULSES: Peripheral pulses 2+ throughout GI: COMMON NORMALS: Normal to inspection, nondistended, normoactive bowel sounds present, Soft to palpation, non-tender and no masses PALPATION: Yes Soft to palpation : COMMON NORMALS: Yes no CVA tenderness BLADDER/KIDNEY EXAM: Yes no CVA tenderness Back/Pelvis: COMMON NORMALS: no CVA tenderness Extremity: COMMON NORMALS: normal to inspection Neuro: COMMON NORMALS: patient oriented x3 and moves all extremities SENSORIUM/ORIENTATION: Yes alert Skin: GENERAL SKIN EXAM: dry skin Course Vital Signs: Vital signs: Vital Signs Temperature 99.0 F 01/10/21 00:34 Pulse Rate 78 01/10/21 00:34 Respiratory Rate 17 01/10/21 00:34 Blood Pressure 128/80 01/10/21 00:34 Pulse Oximetry 98 01/10/21 00:34 MDM - COVID MDM Narrative: Medical decision making narrative: Patient is a 25-year-old male comes to the ED with mild Covid symptoms with nasal drainage congestion and loss of taste and smell. He is healthy nontoxic and lungs are clear to auscultation bilaterally. Chest x-ray shows no acute findings. Covid 19 test performed and pending. Patient was discharged and given self quarantine instructions. Return to ED precautions given. Follow-up with PCP in the next 7 to 10 days for reevaluation. Patient understood and agreed with plan. Imaging Data: CXR: Attestation: I personally reviewed and interpreted this imaging study as follows: My impression: Chest x-ray showed no acute findings. COVID Results: No Data to Display Discharge Plan Discharge Patient Disposition: Home Clinical Impression: Upper respiratory infection Qualifiers: URI type: unspecified viral URI Qualified Code(s): J06.9 - Acute upper respiratory infection, unspecified Condition: Stable Prescriptions: No Action carbamazepine [Tegretol XR] 200 mg tablet extended release 12 hr 200 mg PO BID RF: 0 pantoprazole 40 mg tablet,delayed release (DR/EC) 40 mg PO QAM Qty: 90 RF: 3 ibuprofen 200 mg Tablet 200 mg PO Q6H PRN (Reason: Pain) RF: 0 methylprednisolone [Medrol (Chris)] 4 mg tablets,dose pack See Rx Instructions .ROUTE .COMPLEX Qty: 21 RF: 0 Discharge Orders: Discharge ED (Routine); Ordered 01/10/21 Ordered By: Marty Segovia Referrals: Pierce Lopez MD [Primary Care Provider] - Discharge Diet: Regular Discharge Activity: Limit activity as instructed Patient Instructions: Upper Respiratory Infection (ED), Viral Syndrome (ED) Activity Restrictions/Additional Instructions: Follow-up with medical provider as directed in 7-10 days. COVID testing was performed and sent to lab and results will be back in 1 to 2 days. [facility] should contact you to let you know Covid results, but you can also contact [facility] to find out results as well. Self quarantine until you get Covid results. If positive self quarantine for the next 12 days. Take ibuprofen or Tylenol for fevers. Drink plenty of fluids and stay hydrated. Symptom management with [id number] cough and nasal decongestant meds. Return to the ER or your medical provider if condition worsens. Please read and understand discharge instructions. If any questions, please ask Coding Level of Care Code ED Spindraw Operator for Karen Fwjosé Exam Comprehensive
[2021-01-10 00:26] VITALS: O2SAT 98
[2021-01-10 00:34] VITALS: BP 128/80; PULSE 78; RESP 17; TEMP 37.2; O2SAT 98
[2021-01-11 13:09] LABS: Quest SARS-CoV-2 RNA NOT DETECTED (NOT DETECTED)
--- NOTE | 2021-01-11 16:36 | PC.NURSE ---
PT CALLED AND INFORMED OF HIS COVID TEST RESULTS
== END 2021-01-10 00:35 | disposition home or self-care (01) ==
PROVIDERS: Emergency Provider Physician Assistant; PCP Family Medicine
DX: J06.9 Acute upper respiratory infection, unspecified (principal)
CPT/HCPCS: 71045; 87635; 99283

== ENCOUNTER 2021-05-03 08:54 | Emergency (ER) | payer OTHER, SELFPAY ==
[2021-05-03 09:11] VITALS: BP 120/83; PULSE 96; RESP 18; TEMP 37.3; O2SAT 95; BMI 21.4
[2021-05-03 09:16] VITALS: BP 117/90; PULSE 90; RESP 16; O2SAT 98
--- NOTE | 2021-05-03 09:21 | ED_ITS ---
HPI - Fever General: Chief Complaint: Fever Stated Complaint: FEVER, TINGLING IN CHEST Time Seen by Provider: 05/03/21 09:15 History of Present Illness: HPI Narrative: Patient is a 25-year-old male comes to the ED with fever. Patient says he started developing a fever 2 days ago. Patient also has some nasal congestion currently as well. He states that 2 days ago he felt an episode of tingling in his chest and then developed a fever. Denies any cough or shortness of breath. The episode of chest discomfort is only episodic and lasts for no more than a few minutes. He said this morning and that same chest discomfort that went away and has completely resolved before coming to the ED. He felt like he was warm and might have have a fever this morning so he did a rectal temperature check and says it was 102 degrees. Denies any chest pain, shortness of breath, nausea/vomiting, abdominal pain, bladder or bowel symptoms. Associated symptoms: Reports nasal congestion; Deny abdominal pain, flank pain, chills, chest pain, diarrhea, dysuria, headache(s), nausea or vomiting Review of Systems Const: Reports: fever(s); Denies: chills or fatigue Eyes: Denies: change in vision or eye discomfort ENMT: Reports: nasal discharge and nasal congestion; Denies: throat pain or odynophagia Card: Reports: other (Brief episode of chest tingling/discomfort that has completely resolved); Denies: chest pain, palpitations, edema, swelling of feet/ankles, dyspnea on exertion or orthopnea Resp: Denies: dyspnea, productive cough or non-productive cough GI: Denies: abdominal pain, nausea, vomiting, diarrhea, constipation or hematochezia : Denies: flank pain, difficulty urinating, dysuria or hematuria Musc: Denies: neck pain, back pain or extremity swelling Skin/Breast: Denies: rash or new lesions Neuro: Denies: headache(s), numbness in extremities or weakness in extremities PFSH ED PFSH: Family History Grandfather Cancer Grandmother Diabetes Social History Smoking and tobacco status: never smoked Alcohol intake: never Marital status: Single Current occupational status: employed Physical Exam Const: COMMON NORMALS: no acute distress, patient oriented x3, healthy kathy earing and alert GENERAL APPEARANCE: cooperative and comfortable HENMT: COMMON NORMALS: normocephalic HEAD & SCALP: normocephalic NOSE: Nasal discharge present clear Clear nasal discharge laterality: bilateral MOUTH: Normal oral and palatal mucosa present THROAT: posterior oropharynx normal and uvula midline Neck/C-Spine: COMMON NORMALS: supple GENERAL: Yes normal visual inspection Resp: COMMON NORMALS: normal respiratory effort, No retractions, No use of accessory muscles and clear to auscultation bilaterally AUSCULTATION: clear to auscultation bilaterally Cardio: COMMON NORMALS: regular rate, regular rhythm, S1 normal heart sound present, S2 normal heart sound present, No gallops present (Cardio), No clicks present (Cardio), No murmurs present (Cardio) and Peripheral pulses 2+ throughout RATE: regular rate RHYTHM: regular rhythm HEART SOUNDS: S1 normal heart sound present and S2 normal heart sound present PERIPHERAL PULSES: Peripheral pulses 2+ throughout GI: COMMON NORMALS: Normal to inspection, nondistended, normoactive bowel sounds present, Soft to palpation, non-tender and no masses PALPATION: Yes Soft to palpation : COMMON NORMALS: Yes no CVA tenderness BLADDER/KIDNEY EXAM: Yes no CVA tenderness Back/Pelvis: COMMON NORMALS: no CVA tenderness Extremity: COMMON NORMALS: normal to inspection Neuro: COMMON NORMALS: patient oriented x3 and moves all extremities SENSORIUM/ORIENTATION: Yes alert Skin: GENERAL SKIN EXAM: dry skin Course Vital Signs: Vital signs: Vital Signs Temperature 98.7 F 05/03/21 10:06 Pulse Rate 82 05/03/21 10:06 Respiratory Rate 18 05/03/21 10:06 Blood Pressure 120/80 05/03/21 10:06 Pulse Oximetry 95 05/03/21 10:06 MDM - Fever MDM Narrative: Medical decision making narrative: Patient is a 25-year-old male who comes to the ED with a fever. Patient says he has had a brief episode of some chest tingling discomfort that has resolved before coming to the ED. He has a little bit of nasal congestion but no other symptoms. Vitals stable patient appears nontoxic and is in no acute distress or pain. Lungs are clear to auscultation bilaterally. Chest x-ray showed no acute findings. EKG showed normal sinus rhythm with no ST segment elevation or depression seen. Patient was diagnosed with a viral syndrome and discharged home. Return to ED precautions given. Follow-up with PCP in 7 to 10 days reevaluation. Patient understood agree with plan. Imaging Data^: CXR: Attestation: I personally reviewed and interpreted this imaging study as follows: My impression: Chest x-ray showed no acute findings or infiltrates. Radiologist's impression: [address] [address] XRay Report Signed Patient: Jourdan Echavarria Unit #: [id number] : 1995 Age/Sex: 25 / M ADM Date: 05/03/21 Loc: ER Room/Bed: Attending Dr: Ordering Provider/Ordering MD: Marty Segovia Date of Service: 05/03/21 Procedure(s): XR chest 1V portable [id number] Accession Number(s): [id number] Report Number: [id number] PROCEDURE INFORMATION: Exam: XR Chest Exam date and time: 05/03/2021 9:33 AM Age: 25 years old Clinical indication: Fever TECHNIQUE: Imaging protocol: XR of the chest. Views: 1 view. COMPARISON: CR XR chest 1V portable [id number] 01/09/2021 11:56 PM FINDINGS: Lungs: Unremarkable. No consolidation. Pleural spaces: Unremarkable. No pleural effusion. No pneumothorax. Heart/Mediastinum: Unremarkable. No cardiomegaly. Bones/joints: Unremarkable. XR/XR chest 1V portable [id number] IMPRESSION: No acute findings. Dictated By: David Arita Signed By: David Arita Signed Date/Time: 05/03/21 1044 DD/ 1043 EKG Data^: EKG 1: Attestation: I personally reviewed and interpreted this EKG as follows: EKG interpretation date: 05/03/21 Interpretation: Normal sinus rhythm, 84 bpm, no ST segment elevation or depression seen. Discharge Plan Discharge Patient Disposition: Home Clinical Impression: Viral syndrome Condition: Stable Prescriptions: No Action carbamazepine [Tegretol XR] 200 mg tablet extended release 12 hr 200 mg PO BID RF: 0 pantoprazole 40 mg tablet,delayed release (DR/EC) 40 mg PO QAM Qty: 90 RF: 3 ibuprofen 200 mg Tablet 200 mg PO Q6H PRN (Reason: Pain) RF: 0 methylprednisolone [Medrol (Chris)] 4 mg tablets,dose pack See Rx Instructions .ROUTE .COMPLEX Qty: 21 RF: 0 Discharge Orders: Discharge ED (Routine); Ordered 05/03/21 Ordered By: Marty Segovia Referrals: Pierce Lopez MD [Primary Care Provider] - Discharge Diet: Regular Discharge Activity: Resume usual activity Patient Instructions: Viral Syndrome (ED) Activity Restrictions/Additional Instructions: Follow-up with medical provider as directed in 7-10 days. Take [id number] Tylenol or Motrin for any fevers. Drink plenty of fluids and stay hydrated. Return to the ER or your medical provider if condition worsens. Please read and understand discharge instructions. Thank you for choosing [facility] for your healthcare needs today. Please realize this is an emergency room and that we are providing you with a medical screening exam and this may not be complete and all inclusive of all the testing and or work up that you may need to determine your ailment or severity of your illness. It is very important that you follow up as instructed or that you return to the Emergency Department should you have concerns or if your condition changes or worsens in any way. Coding Level of Care Code ED Software Recruiter for Karen Herzog Exam Comprehensive
--- NOTE | 2021-05-03 09:32 | XRR_ITS ---
PROCEDURE INFORMATION: Exam: XR Chest Exam date and time: 05/03/2021 9:33 AM Age: 25 years old Clinical indication: Fever TECHNIQUE: Imaging protocol: XR of the chest. Views: 1 view. COMPARISON: CR XR chest 1V portable [id number] 01/09/2021 11:56 PM FINDINGS: Lungs: Unremarkable. No consolidation. Pleural spaces: Unremarkable. No pleural effusion. No pneumothorax. Heart/Mediastinum: Unremarkable. No cardiomegaly. Bones/joints: Unremarkable. XR/XR chest 1V portable [id number] IMPRESSION: No acute findings.
[2021-05-03 10:06] VITALS: BP 120/80; PULSE 82; RESP 18; TEMP 37.1; O2SAT 95
--- NOTE | 2021-05-03 11:25 | ECG_ITS ---
[facility] Test Date: 2021-05-03 Pat Name: Jourdan Echavarria Department: Room: Gender: Male Aging Box Hand: : 1995 Requested By: Marty Segovia Order Number: [id number] MD: Alexander Hartman M.D. Measurements Intervals [place] Rate: 84 P: 61 MI: 158 QRS: 65 QRSD: 83 T: 40 QT: 356 QTc: 421 Interpretive Statements SINUS RHYTHM POSSIBLE LEFT ATRIAL ENLARGEMENT [-0.1mV P WAVE IN V1/V2] Compared to ECG 11/04/2019 19:55:54 Sinus arrhythmia no longer present T-wave abnormality no longer present Electronically Signed On 05-03-2021 22:15:34 CDT by Alexander Hartman M.D. [email or web address]
== END 2021-05-03 10:12 | disposition home or self-care (01) ==
PROVIDERS: Emergency Provider Physician Assistant; PCP Family Medicine
DX: B34.9 Viral infection, unspecified (principal)
CPT/HCPCS: 71045; 93005; 99283

== ENCOUNTER → 2021-09-05 19:10 | Outpatient (BNVA) | payer OTHER, SELFPAY | PROVIDERS: PCP Family Medicine; Visit Provider Nurse Practitioner | DX: Z20.822 Contact with and (suspected) exposure to COVID-19 (principal) | CPT/HCPCS: 87635 ==

== ENCOUNTER → 2021-09-21 16:06 | Outpatient (BNVA) | payer OTHER, SELFPAY | PROVIDERS: PCP Family Medicine; Visit Provider Nurse Practitioner Family | DX: Z20.822 Contact with and (suspected) exposure to COVID-19 (principal) | CPT/HCPCS: 87635 ==

== ENCOUNTER → 2021-10-28 15:42 | Outpatient (BNVA) | payer OTHER, SELFPAY | PROVIDERS: Visit Provider Registered Nurse Neonatal Intensive Care | DX: J02.9 Acute pharyngitis, unspecified (principal) | CPT/HCPCS: 87880 ==

== ENCOUNTER 2021-11-11 17:04 | Emergency (ER) | payer OTHER, SELFPAY ==
[2021-11-11 17:15] VITALS: BP 128/78; PULSE 114; RESP 18; TEMP 38.2; O2SAT 95; BMI 20.7
--- NOTE | 2021-11-11 17:26 | W.ED.COVID ---
HPI - COVID General: Chief Complaint: COVID symptoms Stated Complaint: FEVER/BODY ACHES/DIARRHEA Time Seen by Provider: 11/11/21 17:25 Triage information: Has fever, cough or shortness of breath. No known COVID + exposure last 14 days History of Present Illness: HPI Narrative: Patient comes in today with onset of symptoms with fever, cough, and diarrhea starting today. Patient appears mildly unwell but not toxic. Patient is alert and oriented. No acute distress is noted. COVID 19 common symptoms: positive fever(s) and diarrhea COVID Results: SARS-CoV-2 Antigen (Rapid) Negative (Negative) 11/11/21 17:35 11/11/21 SARS-CoV-2 RNA (RT-PCR) Not detected (NOT DETECTED) 09/21/21 16:06 09/21/21 Nasal/Oral Coronavirus 2019 PCR Pending 11/11/21 18:20 11/11/21 Review of Systems General: Reports: 10 or more systems reviewed and unremarkable except in HPI and below Const: Reports: fever(s) GI: Reports: diarrhea PFSH ED PFSH: Family History Grandfather Cancer Grandmother Diabetes Social History Smoking and tobacco status: current every day smoker (chew) smokeless tobacco Alcohol intake: never Marital status: Single Current occupational status: employed Physical Exam Const: COMMON NORMALS: no acute distress and patient oriented x3 GENERAL APPEARANCE: cooperative HENMT: COMMON NORMALS: normocephalic, TM's normal bilaterally and Normal external nose present HEAD & SCALP: normal to inspection and normocephalic NOSE: Normal external nose present TYMPANIC MEMBRANE: TM's normal bilaterally MOUTH: Normal oral and palatal mucosa present THROAT: posterior oropharynx normal Eye: GENERAL EYE: appearance normal, both eyes and all related structures Neck/C-Spine: COMMON NORMALS: full ROM Lymph: LYMPHATIC: no lymphadenopathy noted Chest: COMMONS NORMALS: normal inspection of the chest Resp: COMMON NORMALS: normal respiratory effort EFFORT & INSPECTION: Yes able to speak in complete sentences Cardio: COMMON NORMALS: regular rate and regular rhythm RATE: regular rate RHYTHM: regular rhythm GI: COMMON NORMALS: Soft to palpation and non-tender PALPATION: Yes Soft to palpation : COMMON NORMALS: Yes no CVA tenderness BLADDER/KIDNEY EXAM: Yes no CVA tenderness Back/Pelvis: COMMON NORMALS: no CVA tenderness and thoracic and lumbar spine normal to inspection Extremity: COMMON NORMALS: normal to inspection Neuro: COMMON NORMALS: patient oriented x3 and moves all extremities Psych: COMMON NORMALS: mental status grossly normal and cooperative Skin: COMMON NORMALS: no rashes or lesions noted GENERAL SKIN EXAM: no rashes or lesions noted Course Vital Signs: Vital signs: Vital Signs Temperature 100.7 F H 11/11/21 17:15 Pulse Rate 114 H 11/11/21 17:15 Respiratory Rate 18 11/11/21 17:15 Blood Pressure 128/78 11/11/21 17:15 Pulse Oximetry 95 11/11/21 17:15 MDM - COVID MDM Narrative: Medical decision making narrative: Patient comes in today for concerns of illness starting today with fever and cough and diarrhea. On exam abdomen is soft nontender. Skin is warm and dry. Vital signs are normal except for elevation in pulse and temperature of 100.7. Differential diagnosis includes viral syndrome, COVID-19, influenza, gastroenteritis. COVID-19 and influenza test were both negative. Patient agreed to have PCR COVID-19 testing to affirm the negative status of his COVID-19. I suspect patient probably has a bout of gastroenteritis and will improve within the next 48 to 72 h. Patient was given work note for 2 days encouraged to drink plenty of fluids use acetaminophen and ibuprofen for discomfort. Patient reported understanding and agreed to plan. Lab Data: Labs: Lab Results 11/11/21 11/11/21 17:35 17:35 Influenza Type A A g Negative (Negative) Influenza Type B A g Negative (Negative) SARS-CoV-2 Ag (Rap id) Negative (Negative) COVID Results: SARS-CoV-2 Antigen (Rapid) Negative (Negative) 11/11/21 17:35 11/11/21 SARS-CoV-2 RNA (RT-PCR) Not detected (NOT DETECTED) 09/21/21 16:06 09/21/21 Nasal/Oral Coronavirus 2019 PCR Pending 11/11/21 18:20 11/11/21 Discharge Plan Discharge Patient Disposition: Home Clinical Impression: Viral infection Condition: Stable Prescriptions: No Action carbamazepine [Tegretol XR] 200 mg tablet extended release 12 hr 200 mg PO BID RF: 0 gabapentin 300 mg capsule 300 mg PO TID RF: 0 albuterol sulfate [Ventolin HFA] 90 mcg/actuation HFA aerosol inhaler 2 puff inhalation Q6H PRN (Reason: shortness of breath or wheezing) Qty: 8.5 RF: 0 pantoprazole 40 mg tablet,delayed release (DR/EC) 40 mg PO QAM Qty: 90 RF: 3 ibuprofen 200 mg Tablet 200 mg PO Q6H PRN (Reason: Pain) RF: 0 Discharge Orders: Discharge ED (Routine); Ordered 11/11/21 Ordered By: Ramiro Hanson Discharge Diet: Usual diet Discharge Activity: Increase activity as tolerated Patient Instructions: Viral Syndrome (ED) Activity Restrictions/Additional Instructions: Home and rest. Drink plenty of water and fluids. Use acetaminophen and ibuprofen for pain and fever. We will contact you in 24 to 48 h with the final results of the COVID-19 PCR test. Monitor for worsening symptoms such as blood in vomit or stool, localizing abdominal pain to the right lower quadrant, worsening fever, worsening shortness of breath, or new concerns. Follow-up with the ER if any of these symptoms occur. Coding Level of Care Code ED Boxing And Pressing Supervisor for Karen Herzog
[2021-11-11 18:14] LABS: Influenza A by IFA Negative (Negative); Influenza B by IFA Negative (Negative)
[2021-11-11 18:15] LABS: SARS Covid-2 Antigen Negative (Negative)
[2021-11-12 14:58] LABS: Coronavirus Test Green County Not Detected
== END 2021-11-11 18:28 | disposition home or self-care (01) ==
PROVIDERS: Emergency Provider Nurse Practitioner Family
DX: B34.9 Viral infection, unspecified (principal); F17.220 Nicotine dependence, chewing tobacco, uncomplicated; Z20.822 Contact with and (suspected) exposure to COVID-19
CPT/HCPCS: 87426; 87635; 87804; 99283

== ENCOUNTER → 2021-12-25 13:29 | Outpatient (BNVA) | payer OTHER, SELFPAY | PROVIDERS: Visit Provider Nurse Practitioner Family | DX: Z20.822 Contact with and (suspected) exposure to COVID-19 (principal) | CPT/HCPCS: 87635 ==

== ENCOUNTER 2022-06-08 10:17 | Emergency (ER) | payer OTHER, SELFPAY ==
[2022-06-08 10:59] VITALS: BP 123/76; PULSE 96; RESP 16; TEMP 37.7; O2SAT 97
[2022-06-08 11:05] VITALS: O2SAT 98
--- NOTE | 2022-06-08 11:08 | XRR_ITS ---
PROCEDURE INFORMATION: Exam: XR Chest Exam date and time: 06/08/2022 11:19 AM Age: 27 years old Clinical indication: Cough and dyspnea; Patient HX: History--sore throat, cough, low grade fever x 1 day; Additional info: Dyspnea/cough TECHNIQUE: Imaging protocol: Radiologic exam of the chest. Views: 1 view. COMPARISON: CR XR chest 1V portable [id number] 05/03/2021 9:47 AM FINDINGS: Lungs: Unremarkable. No consolidation. Pleural spaces: Unremarkable. No pleural effusion. No pneumothorax. Heart/Mediastinum: Unremarkable. No cardiomegaly. Bones/joints: Unremarkable. XR/XR chest 1V portable [id number] IMPRESSION: No acute findings.
[2022-06-08 11:32] LABS: Basophils % 0.6 %; Eosinophils # 0.1 10^3/uL (0.0-0.8); Eosinophils % 1.5 %; Hematocrit 43.1 % (42.0-52.0); Hemoglobin 15.1 g/dL (11.7-16.6); Lymphocytes # 0.4 10^3/uL (0.8-4.8); Mean Corpuscular Hemoglobin 30.7 pg (28.0-34.0); Mean Corpuscular Volume 87.6 fl (80-94); Mean Platelet Volume 11.3 fL (7.4-10.4); Monocytes # 0.6 10^3/uL (0.2-0.9); Monocytes % 18.7 %; Neutrophils # 2.29 10^3/uL (1.8-7.7); Neutrophils % 67.9 %; Nucleated Red Blood Cells % 0 %; Platelet Count 157 10^3/cmm (130-400); Red Blood Count 4.92 10^6/uL (4.1-5.3); Red Cell Distribution Width 11.8 % (12.1-15.1); White Blood Count 3.4 10^3/uL (4.0-10.0)
[2022-06-08 11:41] LABS: Alanine Aminotransferase 11 U/L (0-41); Albumin Level 4.4 g/dL (3.5-5.2); Alkaline Phosphatase 75 IU/L (40-130); Aspartate Amino Transferase 16 U/L (0-40); Blood Urea Nitrogen 11 mg/dL (6-20); Calcium 8.7 mg/dL (8.5-10.5); Carbon Dioxide 25 mmol/L (22-29); Chloride 105 mmol/L (98-107); Globulin 2.4 g/dL (1.3-4.6); Glucose 92 mg/dL (65-115); Osmolality Calculated 291 mOsm/kg (285-295); Sodium 141 mmol/L (136-145); Total Bilirubin 0.2 mg/dL (0.15-1.2); Total Protein 6.8 g/dL (6.6-8.7)
[2022-06-08 11:43] LABS: Anion Gap 14.6 (5-19); Potassium 3.6 mmol/L (3.5-5.1)
--- NOTE | 2022-06-08 12:16 | W.ED.COVID ---
HPI - COVID General: Chief Complaint: COVID symptoms Stated Complaint: Body Aches, fever Time Seen by Provider: 06/08/22 10:33 Source: patient Mode of arrival: ambulatory Limitations: no limitations Triage information: Has fever, cough or shortness of breath. History of Present Illness: 27-year-old male presents to the emergency room with complaints of low-grade fever cough and shortness of breath he had some loose stools as well. Symptoms began yesterday. Highest temp he had is 102 is low-grade of 99 8. 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 No anosmia. MD complaint: has COVID symptoms Prior covid testing: no COVID 19 common symptoms: positive fever(s), chills, cough, non-productive cough, dyspnea, fatigue, body aches, headache(s) and throat pain; negative productive cough, loss of sense of smell and/or taste, nasal congestion, nausea, vomiting, diarrhea or chest tightness COVID 19 other sytmptoms: negative chest pain or requiring more oxygen Onset (ago): day(s) (2) Severity: mild Treatment prior to arrival: none COVID Results: SARS-CoV-2 Antigen (Rapid) Negative (Negative) 11/11/21 17:35 11/11/21 SARS-CoV-2 RNA (RT-PCR) Detected (NOT DETECTED) A 12/25/21 13:29 12/25/21 Nasal/Oral Coronavirus 2019 PCR Not detected 11/11/21 18:20 11/11/21 Review of Systems Const: Reports: fever(s), chills, body aches and fatigue ENMT: Reports: throat pain; Denies: nasal congestion Card: Denies: chest pain, edema, dyspnea on exertion or orthopnea Resp: Reports: dyspnea and non-productive cough; Denies: productive cough GI: Denies: nausea, vomiting or diarrhea : Denies: flank pain, dysuria, urinary frequency or urinary urgency Skin/Breast: Denies: rash or pruritus Neuro: Reports: headache(s) [facility] ED PFSH: Medical History (Updated 06/08/22 @ 12:18 by Toney Doll DO) AVM (arteriovenous malformation) brain Calcaneus deformity, acquired GERD (gastroesophageal reflux disease) Surgical History (Updated 06/08/22 @ 12:18 by Toney Doll DO) H/O brain surgery 2 times Family History Grandfather Cancer Grandmother Diabetes Social History Smoking and tobacco status: never smoked Alcohol intake: never Marital status: Single Current occupational status: employed Physical Exam Const: COMMON NORMALS: no acute distress GENERAL APPEARANCE: cooperative and comfortable ORIENTATION/CONSCIOUSNESS: Yes awake, Yes oriented to person, Yes oriented to place and Yes oriented to time HENMT: COMMON NORMALS: normocephalic, atraumatic, hearing grossly normal bilaterally, external ears normal, EAC's normal, TM's normal bilaterally, Normal nasal mucous membranes and turbinates present, moist oral mucous membranes and oropharynx normal HEAD & SCALP: normocephalic and atraumatic NOSE: Normal nasal mucous membranes and turbinates present EXTERNAL EAR: Yes external ears normal EXTERNAL AUDITORY CANAL: EAC's normal TYMPANIC MEMBRANE: TM's normal bilaterally Eye: COMMON NORMALS: Equal, round and reactive pupils present, EOMs intact bilaterally, conjunctivae normal and no scleral icterus CONJUNCTIVA: Yes conjunctivae normal PUPIL: Yes Equal, round and reactive pupils present Neck/C-Spine: COMMON NORMALS: full ROM, no lymphadenopathy, supple and no JVD Lymph: LYMPHATIC: no lymphadenopathy noted and no lymphedema noted Resp: COMMON NORMALS: normal respiratory effort, No retractions, No use of accessory muscles and clear to auscultation bilaterally AUSCULTATION: clear to auscultation bilaterally Cardio: COMMON NORMALS: no JVD, regular rate, regular rhythm and No murmurs present (Cardio) RATE: regular rate RHYTHM: regular rhythm GI: COMMON NORMALS: Soft to palpation and No hepatosplenomegaly present AUSCULTATION: Yes normoactive bowel sounds PALPATION: Yes Soft to palpation, No Tenderness to palpation present (GI), No Guarding due to palpation present (GI) and Yes No hepatosplenomegaly present Extremity: COMMON NORMALS: normal to inspection, capillary refill normal, no clubbing, cyanosis or edema, no calf tenderness and no pedal edema Neuro: SENSORIUM/ORIENTATION: Yes oriented to person, Yes oriented to place and Yes oriented to time Skin: COMMON NORMALS: no rashes or lesions noted GENERAL SKIN EXAM: no rashes or lesions noted Course Vital Signs: Vital signs: Vital Signs Temperature 99.8 F H 06/08/22 10:59 Pulse Rate 96 06/08/22 10:59 Respiratory Rate 16 06/08/22 10:59 Blood Pressure 123/76 06/08/22 10:59 Pulse Oximetry 98 06/08/22 11:05 MDM - COVID Medical Decision Making No emergent condition at this point not hypoxic chest x-ray normal we will discharge patient home labs reviewed. COVID pending we will contact with results once available recommend self quarantine until the results are returned. Medical Records I reviewed the patient's medical records. Lab Data I reviewed the patient's lab results. : 06/08/22 11:15 06/08/22 11:15 Laboratory Results WBC 3.4 10^3/uL (4.0-10.0) L 06/08/22 11:15 RBC 4.92 10^6/uL (4.1-5.3) 06/08/22 11:15 Hgb 15.1 g/dL (11.7-16.6) 06/08/22 11:15 Hct 43.1 % (42.0-52.0) 06/08/22 11:15 MCV 87.6 fl (80-94) 06/08/22 11:15 MCH 30.7 pg (28.0-34.0) 06/08/22 11:15 MCHC 35.0 g/dL (30.0-36.0) 06/08/22 11:15 RDW 11.8 % (12.1-15.1) L 06/08/22 11:15 Plt Count 157 10^3/cmm (130-400) 06/08/22 11:15 MPV 11.3 fL (7.4-10.4) H 06/08/22 11:15 Neut % (Auto) 67.9 % 06/08/22 11:15 Lymph % (Auto) 11.0 % 06/08/22 11:15 Mckean % (Auto) 18.7 % 06/08/22 11:15 Eos % (Auto) 1.5 % 06/08/22 11:15 Baso % (Auto) 0.6 % 06/08/22 11:15 Neut # (Auto) 2.29 10^3/uL (1.8-7.7) 06/08/22 11:15 Lymph # (Auto) 0.4 10^3/uL (0.8-4.8) L 06/08/22 11:15 Mckean # (Auto) 0.6 10^3/uL (0.2-0.9) 06/08/22 11:15 Eos # (Auto) 0.1 10^3/uL (0.0-0.8) 06/08/22 11:15 Baso # (Auto) 0.0 10^3/uL (0.0-0.1) 06/08/22 11:15 Nucleated RBC % (auto) 0 % 06/08/22 11:15 Nucleated RBCs # 0.0 /100WBC 06/08/22 11:15 Sodium 141 mmol/L (136-145) 06/08/22 11:15 Potassium 3.6 mmol/L (3.5-5.1) 06/08/22 11:15 Chloride 105 mmol/L (98-107) 06/08/22 11:15 Carbon Dioxide 25 mmol/L (22-29) 06/08/22 11:15 Anion Gap 14.6 (5-19) 06/08/22 11:15 BUN 11 mg/dL (6-20) 06/08/22 11:15 Creatinine 1.0 mg/dL (0.7-1.2) 06/08/22 11:15 GFR Calculation 89.0 mL/min (90-130) L 06/08/22 11:15 Glucose 92 mg/dL (65-115) 06/08/22 11:15 Calculated Osmolality 291 mOsm/kg (285-295) 06/08/22 11:15 Calcium 8.7 mg/dL (8.5-10.5) 06/08/22 11:15 Total Bilirubin 0.2 mg/dL (0.15-1.2) 06/08/22 11:15 AST 16 U/L (0-40) 06/08/22 11:15 ALT 11 U/L (0-41) 06/08/22 11:15 Alkaline Phosphatase 75 IU/L (40-130) 06/08/22 11:15 Total Protein 6.8 g/dL (6.6-8.7) 06/08/22 11:15 Albumin 4.4 g/dL (3.5-5.2) 06/08/22 11:15 Globulin 2.4 g/dL (1.3-4.6) 06/08/22 11:15 Coronavirus 229E (PCR) Cancelled 06/08/22 11:15 SARS-CoV-2 (PCR) Cancelled 06/08/22 11:15 Misc Test Reference Cancelled 06/08/22 11:15 SARS-CoV-2 Antigen (Rapid) Negative (Negative) 11/11/21 17:35 11/11/21 SARS-CoV-2 RNA (RT-PCR) Detected (NOT DETECTED) A 12/25/21 13:29 12/25/21 Nasal/Oral Coronavirus 2019 PCR Not detected 11/11/21 18:20 11/11/21 Discharge Plan Discharge Patient Disposition: Home Clinical Impression: Viral infection Condition: Stable Prescriptions: No Action carbamazepine [Tegretol XR] 200 mg tablet extended release 12 hr 200 mg PO BID 0RF pantoprazole 40 mg tablet,delayed release (DR/EC) 40 mg PO QAM Qty: 30 0RF ibuprofen 200 mg Tablet 800 mg PO Q6H PRN (Reason: Pain) 0RF albuterol sulfate 90 mcg/actuation HFA aerosol inhaler 2 puff INHALATION Q6H PRN (Reason: Shortness Of Breath) 0RF Discharge Orders: Discharge ED (Routine); Ordered 06/08/22 Ordered By: Toney Doll Discharge Diet: Usual diet Discharge Activity: Limit activity as instructed Patient Instructions: COVID-19 (Coronavirus Disease 2019) (ED), Opioid Safety Activity Restrictions/Additional Instructions: You were swabbed for COVID-19 today. When the results come back we will contact you. Recommend that you maintain self quarantine until results are returned. Recommend you use [id number] cough cold remedies Tylenol ibuprofen first symptom relief. Coding Level of Care Code ED Callisthenics Instructor for Karen Herzog
[2022-06-08 12:35] VITALS: BP 113/70; PULSE 88; RESP 14; TEMP 36.8; O2SAT 97
[2022-06-09 15:43] LABS: Quest SARS-CoV-2 RNA DETECTED (NOT DETECTED)
== END 2022-06-08 12:37 | disposition home or self-care (01) ==
PROVIDERS: Emergency Provider Family Medicine
DX: U07.1 COVID-19 (principal)
CPT/HCPCS: 71045; 80053; 85025; 87635; 99284

== ENCOUNTER 2022-09-12 15:07 | Emergency (ER) | payer OTHER, SELFPAY ==
[2022-09-12 15:13] VITALS: BP 138/77; PULSE 96; RESP 16; TEMP 36.8; O2SAT 96; BMI 21.4
--- NOTE | 2022-09-12 15:41 | W.ED.WOUNDLC ---
HPI - Wound/Laceration General: Chief Complaint: Wound/Laceration Stated Complaint: Right thumb lac Time Seen by Provider: 09/12/22 15:41 History of Present Illness: 27-year-old male patient comes in today for injury to the distal right thumb. Patient was setting up a metal ladder when he accidentally jammed his finger into the rung of the ladder causing a flap laceration to the distal part of the thumb. Thumb nail is intact. There is a skin flap to the distal thumb that is superficial. Patient is needing a tetanus shot. Associated symptoms: Denies fever(s) Review of Systems Const: Denies: fever(s) Card: Denies: chest pain Resp: Denies: dyspnea Musc: Reports: extremity pain Skin/Breast: Reports: new lesions PFSH ED PFSH: Medical History (Updated 09/12/22 @ 16:10 by CAMILLA Goodwin) AVM (arteriovenous malformation) brain Calcaneus deformity, acquired GERD (gastroesophageal reflux disease) Surgical History (Updated 06/08/22 @ 12:18 by Toney Doll DO) H/O brain surgery 2 times Family History Grandfather Cancer Grandmother Diabetes Social History Smoking and tobacco status: never smoked Alcohol intake: never Marital status: Single Current occupational status: employed Physical Exam Const: COMMON NORMALS: alert HENMT: COMMON NORMALS: normocephalic HEAD & SCALP: normocephalic Resp: COMMON NORMALS: normal respiratory effort Cardio: COMMON NORMALS: regular rate RATE: regular rate Extremity: RIGHT UPPER EXTREMITY: Yes hand & digits (1 cm flap laceration to the distal thumb) Right hand and digits: Yes inspection, Yes palpation and Yes ROM exam Neuro: SENSORIUM/ORIENTATION: Yes alert Procedures Laceration Laceration 1: Site: hand Side (If applicable): right Size (cm): 1 Description: flap Depth: simple, single layer Pre-repair: wound explored and irrigated extensively Skin layer closed with: other (Skin adhesive) Course Vital Signs: Vital signs: Vital Signs Temperature 98.3 F 09/12/22 15:13 Pulse Rate 96 09/12/22 15:13 Respiratory Rate 16 09/12/22 15:13 Blood Pressure 138/77 09/12/22 15:13 Pulse Oximetry 96 09/12/22 15:13 Oxygen Delivery Me thod 09/12/22 15:13 MDM - Wound/Laceration Medical Decision Making 27-year-old male patient comes in today for injury to the distal thumb. On exam we note a small flap laceration approximately 1 cm to the distal thumb. Differential diagnosis includes but not limited to foreign body, nail injury, need for prophylaxis tetanus, laceration. Examination of the laceration noted no foreign body or fracture. Bleeding was controlled. Wound was cleaned and flap was secured with skin adhesive. Patient was then dressed in a OpSite and Coban with splint for protection. Patient be kept on cephalexin 1 capsule twice a day for 7 days for prophylactic antibiotic. Tetanus was updated. Patient reported understanding of care plan need for follow-up or return to the ER. Discharge Plan Discharge Patient Disposition: Home Clinical Impression: Laceration of thumb Qualifiers: Encounter type: initial encounter Damage to nail status: without damage Foreign body presence: without foreign body Laterality: right Qualified Code(s): S61.011A - Laceration without foreign body of right thumb without damage to nail, initial encounter Condition: Stable Prescriptions: New cephalexin 500 mg capsule 500 mg PO BID 7 Days Qty: 14 0RF No Action carbamazepine [Tegretol XR] 200 mg tablet extended release 12 hr 200 mg PO BID pantoprazole 40 mg tablet,delayed release (DR/EC) 40 mg PO QAM Qty: 30 3RF ibuprofen 200 mg Tablet 800 mg PO Q6H PRN (Reason: Pain) albuterol sulfate 90 mcg/actuation HFA aerosol inhaler 2 puff INHALATION Q6H PRN (Reason: Shortness Of Breath) Discharge Orders: Discharge ED (Routine); Ordered 09/12/22 Ordered By: Ramiro Hanson Discharge Diet: Usual diet Discharge Activity: Increase activity as tolerated Patient Instructions: Finger Laceration (ED) Activity Restrictions/Additional Instructions: Keep wound clean and dry as possible. Is important keep the wound as dry as possible for the next 2 days. Leave initial dressing on unless it becomes soiled or wet. Follow-up with primary care as needed. Keep splint in place to protect wound. Follow-up with primary care as needed. Return to ER for new concerns. Take cephalexin 500 mg 1 tablet twice a day for 7 days for prophylaxis antibiotic. Coding Level of Care Code ED Summer Camp Counselor for Karen Herzog
[2022-09-12] MEDS: tetanus-dipt-pertussis 0.5 mL SDV IM (16:25)
== END 2022-09-12 16:32 | disposition home or self-care (01) ==
PROVIDERS: Emergency Provider Nurse Practitioner Family
DX: S61.011A Laceration without foreign body of right thumb without damage to nail, initial encounter (principal); W22.8XXA Striking against or struck by other objects, initial encounter; Z23 Encounter for immunization
CPT/HCPCS: 12001; 90471; 90715; 99283

== ENCOUNTER → 2023-02-25 15:33 | Outpatient (BNVA) | payer OTHER, SELFPAY | PROVIDERS: Visit Provider Nurse Practitioner Family | DX: J02.9 Acute pharyngitis, unspecified (principal) | CPT/HCPCS: 87880 ==

== ENCOUNTER → 2024-07-23 13:32 | Outpatient (BNVA) | payer OTHER, SELFPAY | PROVIDERS: Visit Provider Nurse Practitioner | DX: R09.81 Nasal congestion (principal) | CPT/HCPCS: 87426 ==

== ENCOUNTER 2025-01-31 09:12 | Emergency (ER) | payer SELFPAY ==
--- NOTE | 2025-01-31 09:17 | ECG_ITS ---
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 Measurements Intervals Scott Rate: 71 P: 69 MD: 140 QRS: 93 QRSD: 92 T: 59 QT: 368 QTc: 401 Interpretive Statements SINUS RHYTHM WITH SINUS ARRHYTHMIA BORDERLINE RIGHT AXIS DEVIATION [QRS AXIS > 90] Compared to ECG 05/03/2021 09:48:29 No significant changes Electronically Signed On 02-02-2025 19:40:06 RIG HAND by Alexander Hartman M.D. [id number]
[2025-01-31 09:22] VITALS: BP 126/85; PULSE 77; RESP 16; TEMP 36.6; O2SAT 99; BMI 21.4
--- NOTE | 2025-01-31 09:31 | XR_ITS ---
WS: [id number] XR chest 1V portable [id number] REASON FOR EXAM: dyspnea/cough FINDINGS: Chest is unchanged compared to 06/08/2022. Normal heart and mediastinum. Calcified granulomatous disease in both hemithoraces. No acute pulmonary parenchymal or pleural abnormality. Bony thorax intact without significant focal abnormality. XR/XR chest 1V portable [id number] IMPRESSION: Stable chest with no acute abnormality.
--- NOTE | 2025-01-31 09:55 | ED_ITS ---
HPI - URI/Sore Throat General: Chief Complaint: Upper Respiratory Infection Stated Complaint: back pain Time Seen by Provider: 01/31/25 09:31 History of Present Illness: 29-year-old male presents emergency room complaining of what he describes as pain in his lungs as well as sore throat. Associated symptoms: Deny abdominal pain, chills, chest pain or fever(s) Related Data Home Medications ?Medication ?Instructions ?Recorded ?Confirmed carbamazepine 200 mg 200 mg PO BID 01/31/2501/31 tablet,extended release,12 hr pantoprazole 40 mg tablet,delayed 40 mg PO DAILY 01/3101/31/25 release Allergies Allergy/AdvReac Type Severity Reaction Status Date / Time No Known Allergies Allergy Verified 07/23/24 13:26 Review of Systems Const: Denies: fever(s) or chills Card: Denies: chest pain Resp: Denies: dyspnea GI: Denies: abdominal pain : Denies: dysuria, urinary frequency or urinary urgency Musc: Denies: neck pain or back pain Skin/Breast: Denies: rash PFSH ED PFSH: Medical History AVM (arteriovenous malformation) brain Calcaneus deformity, acquired GERD (gastroesophageal reflux disease) Surgical History H/O brain surgery 2 times Family History Grandfather Cancer Grandmother Diabetes Social History Smoking and tobacco/nicotine status: heavy tobacco/nicotine user (smokeless tobacco) smokeless tobacco Alcohol intake: never Substance/Drug Use: never Marital status: Single Current occupational status: employed Physical Exam Const: COMMON NORMALS: no acute distress GENERAL APPEARANCE: cooperative and comfortable ORIENTATION/CONSCIOUSNESS: Yes awake, Yes oriented to person, Yes oriented to place and Yes oriented to time HENMT: COMMON NORMALS: normocephalic, atraumatic and hearing grossly normal bilaterally HEAD & SCALP: normocephalic and atraumatic Resp: COMMON NORMALS: normal respiratory effort, No retractions, No use of accessory muscles and clear to auscultation bilaterally AUSCULTATION: clear to auscultation bilaterally Cardio: COMMON NORMALS: regular rate, regular rhythm and No murmurs present (Cardio) RATE: regular rate RHYTHM: regular rhythm GI: COMMON NORMALS: Soft to palpation and No hepatosplenomegaly present AUSCULTATION: Yes normoactive bowel sounds PALPATION: Yes Soft to palpation, No Tenderness to palpation present (GI), No Guarding due to palpation present (GI) and Yes No hepatosplenomegaly present Extremity: COMMON NORMALS: normal to inspection, capillary refill normal, no clubbing, cyanosis or edema, no calf tenderness and no pedal edema Neuro: SENSORIUM/ORIENTATION: Yes oriented to person, Yes oriented to place and Yes oriented to time Skin: COMMON NORMALS: no rashes or lesions noted GENERAL SKIN EXAM: no rashes or lesions noted Course Vital Signs: Vital signs: Vital Signs Temperature 97.9 F 01/31/25 09:22 Pulse Rate 77 01/31/25 09:22 Respiratory Rate 16 01/31/25 09:22 Blood Pressure 126/85 01/31/25 09:22 Pulse Oximetry 99 01/31/25 09:22 Oxygen Delivery Me thod Room Air 01/31/25 09:22 Discharge Plan Discharge Condition: Stable Prescriptions: No Action carbamazepine 200 mg tablet extended release 12 hr 200 mg PO BID pantoprazole 40 mg tablet,delayed release (DR/EC) 40 mg PO DAILY Print Language: Yakut Coding Level of Care Code ED Loss Prevention Investigator for Karen Herzog
--- NOTE | 2025-01-31 10:24 | W.ED.SOB ---
HPI - SOB/Dyspnea General: Chief Complaint: Upper Respiratory Infection Stated Complaint: back pain Time Seen by Provider: 01/31/25 09:31 Source: patient Mode of arrival: ambulatory Limitations: no limitations History of Present Illness: HPI Narrative: 29-year-old male states when he is having some right sided chest pain. He states it was a 430 he states is a sharp pain and tingling worse with swallowing states that since then it is completely resolved he denies any cough denies any fever he denies any shortness of breath. He denies any vomiting or diarrhea Associated symptoms: Reports chest pain; Deny abdominal pain, fever(s), nausea or vomiting Related Data Home Medications ?Medication ?Instructions ?Recorded ?Confirmed carbamazepine 200 mg 200 mg PO BID 01/31/25 01/31/25 tablet,extended release,12 hr pantoprazole 40 mg tablet,delayed 40 mg PO DAILY 01/31/25 01/31/25 release Allergies Allergy/AdvReac Type Severity Reaction Status Date / Time No Known Allergies Allergy Verified 07/23/24 13:26 Review of Systems Const: Denies: fever(s), chills, body aches or change in appetite ENMT: Denies: throat pain or dental pain Card: Reports: chest pain Resp: Denies: dyspnea GI: Denies: abdominal pain, nausea, vomiting or diarrhea Musc: Denies: neck pain or back pain Skin/Breast: Denies: rash Neuro: Denies: headache(s) PFSH ED PFSH: Medical History AVM (arteriovenous malformation) brain Calcaneus deformity, acquired GERD (gastroesophageal reflux disease) Surgical History H/O brain surgery 2 times Family History Grandfather Cancer Grandmother Diabetes Social History Smoking and tobacco/nicotine status: heavy tobacco/nicotine user (smokeless tobacco) smokeless tobacco Alcohol intake: never Substance/Drug Use: never Marital status: Single Current occupational status: employed Physical Exam Const: COMMON NORMALS: no acute distress, patient oriented x3 and healthy appearing HENMT: COMMON NORMALS: normocephalic and atraumatic HEAD & SCALP: normocephalic and atraumatic Neck/C-Spine: COMMON NORMALS: full ROM and supple Chest: COMMONS NORMALS: normal inspection of the chest Resp: COMMON NORMALS: normal respiratory effort, No retractions, No use of accessory muscles and clear to auscultation bilaterally AUSCULTATION: clear to auscultation bilaterally Cardio: COMMON NORMALS: regular rate, regular rhythm and No murmurs present (Cardio) RATE: regular rate RHYTHM: regular rhythm Extremity: COMMON NORMALS: normal to inspection and full ROM Neuro: COMMON NORMALS: patient oriented x3, moves all extremities and no focal motor deficits Psych: COMMON NORMALS: mental status grossly normal, Normal thought process present and cooperative THOUGHT PROCESS: Normal thought process present Skin: COMMON NORMALS: no rashes or lesions noted and no wounds GENERAL SKIN EXAM: no rashes or lesions noted Course Vital Signs: Vital signs: Vital Signs Temperature 97.9 F 01/31/25 09:22 Pulse Rate 77 01/31/25 09:22 Respiratory Rate 16 01/31/25 09:22 Blood Pressure 126/85 01/31/25 09:22 Pulse Oximetry 99 01/31/25 09:22 Oxygen Delivery Me thod Room Air 01/31/25 09:22 MDM - SOB/Dyspnea Medical Decision Making Patient presents here with atypical chest pain is since resolved patient has no pain here EKG x-ray blood works normal he stable for discharge follow-up PCP return if worsening Medical Records I reviewed the patient's medical records. Lab Data I reviewed the patient's lab results. 01/31/25 10:40 01/31/25 10:40 Labs/Radiology: Radiology Impressions Chest X-Ray 01/31/25 09:31 IMPRESSION: Stable chest with no acute abnormality. Laboratory Results WBC 6.80 10^3/uL (3.29-11.43) 01/31/25 10:40 RBC 5.12 10^6/uL (3.85-5.65) 01/31/25 10:40 Hgb 15.40 g/dL (11.27-16.99) 01/31/25 10:40 Hct 46.2 % (37-53) 01/31/25 10:40 MCV 90.2 fl (82-101) 01/31/25 10:40 MCH 30.1 pg (27-33) 01/31/25 10:40 MCHC 33.3 g/dL (30-55) 01/31/25 10:40 RDW 12.1 % (12.1-15.1) 01/31/25 10:40 Plt Count 268 10^3/cmm (157-399) 01/31/25 10:40 MPV 9.5 fL (7.4-10.4) 01/31/25 10:40 Neut % (Auto) 76.8 % 01/31/25 10:40 Lymph % (Auto) 12.6 % 01/31/25 10:40 [place] % (Auto) 7.2 % 01/31/25 10:40 Eos % (Auto) 2.4 % 01/31/25 10:40 Baso % (Auto) 0.7 % 01/31/25 10:40 Neut # (Auto) 5.22 10^3/uL (1.8-7.7) 01/31/25 10:40 Lymph # (Auto) 0.9 10^3/uL (0.8-4.8) 01/31/25 10:40 [place] # (Auto) 0.5 10^3/uL (0.2-0.9) 01/31/25 10:40 Eos # (Auto) 0.2 10^3/uL (0.0-0.8) 01/31/25 10:40 Baso # (Auto) 0.1 10^3/uL (0.0-0.1) 01/31/25 10:40 Nucleated RBC % (auto) 0 % 01/31/25 10:40 Nucleated RBCs # 0.0 /100WBC 01/31/25 10:40 Sodium 141 mmol/L (136-145) 01/31/25 10:40 Potassium 4.1 mmol/L (3.5-5.1) 01/31/25 10:40 Chloride 103 mmol/L (98-107) 01/31/25 10:40 Carbon Dioxide 27 mmol/L (22-29) 01/31/25 10:40 Anion Gap 15.1 (5-19) 01/31/25 10:40 BUN 9 mg/dL (6-20) 01/31/25 10:40 Creatinine 0.8 mg/dL (0.7-1.2) 01/31/25 10:40 GFR Calculation 113.5 mL/min (90-130) 01/31/25 10:40 Glucose 105 mg/dL (65-115) 01/31/25 10:40 Calculated Osmolality 291 mOsm/kg (285-295) 01/31/25 10:40 Calcium 9.5 mg/dL (8.5-10.5) 01/31/25 10:40 Total Bilirubin 0.3 mg/dL (0.15-1.2) 01/31/25 10:40 AST 15 U/L (0-40) 01/31/25 10:40 ALT 9 U/L (0-41) 01/31/25 10:40 Alkaline Phosphatase 79 U/L (40-130) 01/31/25 10:40 Total Protein 7.4 g/dL (6.6-8.7) 01/31/25 10:40 Albumin 4.5 g/dL (3.5-5.2) 01/31/25 10:40 Globulin 2.9 g/dL (1.3-4.6) 01/31/25 10:40 Influenza A (PCR) Negative (Negative) 01/31/25 10:18 Influenza Type B (PCR) Negative (Negative) 01/31/25 10:18 RSV (PCR) Negative (Negative) 01/31/25 10:18 SARS-CoV-2 (PCR) Negative (Negative) 01/31/25 10:18 Group A Strep Rapid Negative (Negative) 01/31/25 10:18 All radiology interpretation(s) finalized by discharge Discharge Plan Discharge Patient Disposition: Home Clinical Impression: Chest pain Condition: Stable Prescriptions: No Action carbamazepine 200 mg tablet extended release 12 hr 200 mg PO BID pantoprazole 40 mg tablet,delayed release (DR/EC) 40 mg PO DAILY Discharge Orders: Discharge ED (Routine); Ordered 01/31/25 Ordered By: Tasha Benton Discharge Diet: Advance as tolerated Discharge Activity: Resume usual activity Patient Instructions: Chest Pain (ED) Print Language: Maltese Coding Level of Care Code ED Chemical Instrumentation Officer for Karen Herzog
[2025-01-31 10:48] LABS: Rapid Strep A Test Negative (Negative)
[2025-01-31 11:11] LABS: Basophils # 0.1 10^3/uL (0.0-0.1); Basophils % 0.7 %; Eosinophils # 0.2 10^3/uL (0.0-0.8); Eosinophils % 2.4 %; Hematocrit 46.2 % (37-53); Lymphocytes # 0.9 10^3/uL (0.8-4.8); Lymphocytes % 12.6 %; Mean Corpuscular HGB Conc 33.3 g/dL (30-55); Mean Corpuscular Hemoglobin 30.1 pg (27-33); Mean Corpuscular Volume 90.2 fl (82-101); Mean Platelet Volume 9.5 fL (7.4-10.4); Monocytes # 0.5 10^3/uL (0.2-0.9); Monocytes % 7.2 %; Neutrophils # 5.22 10^3/uL (1.8-7.7); Neutrophils % 76.8 %; Nucleated Red Blood Cells % 0 %; Platelet Count 268 10^3/cmm (157-399); Red Blood Count 5.12 10^6/uL (3.85-5.65); Red Cell Distribution Width 12.1 % (12.1-15.1)
[2025-01-31 11:19] LABS: Influenza A NEGATIVE (Negative); Influenza B NEGATIVE (Negative); Respiratory Syncytial Virus Ce NEGATIVE (Negative); SARS-CoV-2 PCR NEGATIVE (Negative)
--- NOTE | 2025-01-31 11:23 | PC.NURSE ---
This nurse took pt report from Cecilia LEE at this time.
[2025-01-31 11:24] VITALS: BP 125/81; PULSE 81; O2SAT 98
[2025-01-31 11:30] LABS: Alanine Aminotransferase 9 U/L (0-41); Albumin Level 4.5 g/dL (3.5-5.2); Alkaline Phosphatase 79 U/L (40-130); Anion Gap 15.1 (5-19); Aspartate Amino Transferase 15 U/L (0-40); Blood Urea Nitrogen 9 mg/dL (6-20); Calcium 9.5 mg/dL (8.5-10.5); Carbon Dioxide 27 mmol/L (22-29); Chloride 103 mmol/L (98-107); Creatinine Clr Calc Pharmacy 131.2522; Globulin 2.9 g/dL (1.3-4.6); Glomerular Filtration Rate 113.5 mL/min (90-130); Glucose 105 mg/dL (65-115); Osmolality Calculated 291 mOsm/kg (285-295); Potassium 4.1 mmol/L (3.5-5.1); Sodium 141 mmol/L (136-145); Total Bilirubin 0.3 mg/dL (0.15-1.2); Total Protein 7.4 g/dL (6.6-8.7)
[2025-01-31 11:42] VITALS: BP 114/79; PULSE 85; O2SAT 96
== END 2025-01-31 11:43 | disposition home or self-care (01) ==
PROVIDERS: Family Medicine; Emergency Provider Emergency Medicine
DX: R07.9 Chest pain, unspecified (principal); Z11.52 Encounter for screening for COVID-19; F17.290 Nicotine dependence, other tobacco product, uncomplicated
CPT/HCPCS: 36415; 71045; 80053; 85025; 87081; 87637; 87880; 93005; 99285

== ENCOUNTER 2025-02-11 11:19 | Emergency (ER) | payer SELFPAY ==
[2025-02-11 11:24] VITALS: BP 123/84; PULSE 80; TEMP 36.9; O2SAT 98; BMI 21.4
--- NOTE | 2025-02-11 11:34 | W.ED.DENTAL ---
HPI - Dental/Oral General: Chief complaint: Dental/Oral Stated complaint: lip swelling Time Seen by Provider: 02/11/25 11:21 Source: patient Mode of arrival: ambulatory Limitations: no limitations History of Present Illness: 29-year-old male states that he had some lip swelling this morning states had some swelling over his lower lip he states it seemed to be more swollen earlier and slightly went down he had some redness as well. Denies any known allergic reaction he denies any shortness of breath denies any throat swelling. Denies any fevers or injuries Associated symptoms: Denies fever(s) Related Data Home Medications ?Medication ?Instructions ?Recorded ?Confirmed carbamazepine 200 mg 200 mg PO BID 01/31/25 02/11/25 tablet,extended release,12 hr pantoprazole 40 mg tablet,delayed 40 mg PO DAILY 01/31/25 02/11/25 release Previous Rx's ?Medication ?Instructions ?Recorded cephalexin 500 mg capsule 500 mg PO TID 7 days #21 caps 02/11/25 sulfamethoxazole 800 1 tab PO BID 10 days #20 tabs 02/11/25 mg-trimethoprim 160 mg tablet (Bactrim DS) Allergies Allergy/AdvReac Type Severity Reaction Status Date / Time No Known Allergies Allergy Verified 02/11/25 11:29 Review of Systems Const: Denies: fever(s), chills, body aches or change in appetite ENMT: Denies: throat pain or dental pain Card: Denies: chest pain Resp: Denies: dyspnea GI: Denies: abdominal pain, nausea, vomiting or diarrhea Musc: Denies: neck pain or back pain Skin/Breast: Denies: rash Neuro: Denies: headache(s) PFS ED PFSH: Medical History AVM (arteriovenous malformation) brain Calcaneus deformity, acquired GERD (gastroesophageal reflux disease) Surgical History H/O brain surgery 2 times Family History Grandfather Cancer Grandmother Diabetes Social History Smoking and tobacco/nicotine status: heavy tobacco/nicotine user (smokeless tobacco) smokeless tobacco Alcohol intake: never Substance/Drug Use: never Marital status: Single Current occupational status: employed Physical Exam Const: COMMON NORMALS: no acute distress, patient oriented x3 and healthy appearing HENMT: COMMON NORMALS: normocephalic and atraumatic HEAD & SCALP: normocephalic and atraumatic OTHER: Swelling to the lower lips some slight erythema no abscess formation no throat swelling Neck/C-Spine: COMMON NORMALS: full ROM and supple Chest: COMMONS NORMALS: normal inspection of the chest Resp: COMMON NORMALS: normal respiratory effort, No retractions, No use of accessory muscles and clear to auscultation bilaterally AUSCULTATION: clear to auscultation bilaterally Cardio: COMMON NORMALS: regular rate RATE: regular rate Extremity: COMMON NORMALS: normal to inspection and full ROM Neuro: COMMON NORMALS: patient oriented x3, moves all extremities and no focal motor deficits Psych: COMMON NORMALS: mental status grossly normal, Normal thought process present and cooperative THOUGHT PROCESS: Normal thought process present Skin: COMMON NORMALS: no rashes or lesions noted and no wounds GENERAL SKIN EXAM: no rashes or lesions noted Course Vital Signs: Vital signs: Vital Signs Temperature 98.5 F 02/11/25 11:24 Pulse Rate 80 02/11/25 11:24 Blood Pressure 123/84 02/11/25 11:24 Pulse Oximetry 98 02/11/25 11:24 Oxygen Delivery Me thod Room Air 02/11/25 11:24 MDM - Dental/Oral Medical Decision Making Patient has swelling to his lower lip could be allergic reaction or cellulitis he has no signs of abscess formation he is to take Benadryl at home we will start him on antibiotics he is return if worsening he understands agrees to plan Medical Records I reviewed the patient's medical records. No radiology studies performed this visit Discharge Plan Discharge Patient Disposition: Home Clinical Impression: Lip swelling Condition: Stable Prescriptions: New sulfamethoxazole-trimethoprim [Bactrim DS] 800-160 mg tablet 1 tab PO BID 10 Days Qty: 20 0RF cephalexin 500 mg capsule 500 mg PO TID 7 Days Qty: 21 0RF No Action carbamazepine 200 mg tablet extended release 12 hr 200 mg PO BID pantoprazole 40 mg tablet,delayed release (DR/EC) 40 mg PO DAILY Discharge Orders: Discharge ED (Routine); Ordered 02/11/25 Ordered By: Tasha Benton Referrals: Margaux Swartz MD [Primary Care Provider] - 4-7 days Discharge Diet: Advance as tolerated Discharge Activity: Resume usual activity Patient Instructions: Cellulitis (ED) Print Language: Amharic Coding Level of Care Code ED Ve Teacher for Karen Herzog
[2025-02-11 11:48] VITALS: BP 147/87; PULSE 73; O2SAT 97
== END 2025-02-11 11:49 | disposition home or self-care (01) ==
PROVIDERS: Emergency Provider Emergency Medicine; PCP Family Medicine
DX: K13.0 Diseases of lips (principal); F17.290 Nicotine dependence, other tobacco product, uncomplicated
CPT/HCPCS: 99283

== ENCOUNTER 2025-03-05 15:16 | Emergency (ER) | payer SELFPAY ==
[2025-03-05 15:19] VITALS: BP 144/94; PULSE 86; TEMP 36.8; O2SAT 100; BMI 21.4
[2025-03-05 15:29] VITALS: BP 138/96; PULSE 92; O2SAT 100
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
--- NOTE | 2025-03-05 16:11 | CTR_ITS ---
PROCEDURE INFORMATION: Exam: CT Head Without Contrast Exam date and time: 03/05/2025 4:21 PM Age: 29 years old Clinical indication: Weakness, extremity; Right; Prior surgery; Surgery date: 6+ months; Surgery type: Brain cyst, avm; Additional info: R sided numbness TECHNIQUE: Imaging protocol: Computed tomography of the head without contrast. Radiation optimization: All CT scans at this facility use at least one of these dose optimization techniques: automated exposure control; mA and/or kV adjustment per patient size (includes targeted exams where dose is matched to clinical indication); or iterative reconstruction. COMPARISON: 1. CT angio headneck* [id number] 04/20/2020 10:[address] head wo con* [id number] 04/20/2020 10:10 PM RADIATION DOSE METRICS: Total DLP (mGy-cm): 1136.1 FINDINGS: Brain: Previously described multiple focal hyperdensities without surrounding parenchymal edema are unchanged compared to 04/20/2020. Chronic encephalomalacia is seen in the left frontal lobe. There is no acute hemorrhage, mass effect or midline shift.Arredondo-white differentiation appears preserved. Cerebral ventricles: No ventriculomegaly. Paranasal sinuses: The visualized sinuses are unremarkable. Mastoid air cells: There is no mastoid effusion detected. Bones: Postsurgical changes of previous left craniotomy. Soft tissues: Unremarkable. CT/CT head wo con* [id number] IMPRESSION: 1. Previously described multiple focal hyperdensities without surrounding parenchymal edema are unchanged compared to 04/20/2020. 2. 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 3. No acute hemorrhage, mass effect or midline shift.
--- NOTE | 2025-03-05 16:11 | CTR_ITS ---
PROCEDURE INFORMATION: Exam: CTA Head With Contrast, Arteriography Exam date and time: 03/05/2025 4:21 PM Age: 29 years old Clinical indication: Weakness; Prior surgery; Surgery date: 6+ months; Surgery type: Brain cyst, avm; Additional info: R sided paresthesias; HX of avms, callus malformation neck TECHNIQUE: Imaging protocol: Computed tomographic angiography of the head with contrast. Exam focused on the arteries. 3D rendering (Not supervised by radiologist): MIP and/or 3D reconstructed images were created by the technologist. Radiation optimization: All CT scans at this facility use at least one of these dose optimization techniques: automated exposure control; mA and/or kV adjustment per patient size (includes targeted exams where dose is matched to clinical indication); or iterative reconstruction. Contrast material: OMNIPAQUE 350; Contrast volume: 100 ml; Contrast route: INTRAVENOUS (IV); COMPARISON: CT angio headneck* [id number] 04/20/2020 10:14 PM RADIATION DOSE METRICS: Total DLP (mGy-cm): 361.6 FINDINGS: ANTERIOR CIRCULATION: Right internal carotid artery: Intracranial segment is patent with no significant stenosis. No aneurysm. Right middle cerebral artery: No occlusion or significant stenosis. No aneurysm. Right anterior cerebral artery: No occlusion or significant stenosis. No aneurysm. Left internal carotid artery: Intracranial segment is patent with no significant stenosis. No aneurysm. Left middle cerebral artery: No occlusion or significant stenosis. No aneurysm. Left anterior cerebral artery: No occlusion or significant stenosis. No aneurysm. POSTERIOR CIRCULATION: Right vertebral artery: No occlusion or significant stenosis. No aneurysm. Left vertebral artery: No occlusion or significant stenosis. No aneurysm. Basilar artery: No occlusion or significant stenosis. No aneurysm. Right posterior cerebral artery: No occlusion or significant stenosis. No aneurysm. Left posterior cerebral artery: No occlusion or significant stenosis. No aneurysm. PROCEDURE INFORMATION: Exam: CTA Neck With Contrast Exam date and time: 03/05/2025 4:21 PM Age: 29 years old Clinical indication: Weakness; Prior surgery; Surgery date: 6+ months; Surgery type: Brain cyst, avm; Additional info: R sided paresthesias; HX of avms, callus malformation neck TECHNIQUE: Imaging protocol: Computed tomographic angiography of the neck with contrast. Exam focused on the cervical segments of the vasculature. 3D rendering (Not supervised by radiologist): MIP and/or 3D reconstructed images were created by the technologist. Radiation optimization: All CT scans at this facility use at least one of these dose optimization techniques: automated exposure control; mA and/or kV adjustment per patient size (includes targeted exams where dose is matched to clinical indication); or iterative reconstruction. Contrast material: OMNIPAQUE 350; Contrast volume: 100 ml; Contrast route: INTRAVENOUS (IV); COMPARISON: CT angio headneck* [id number] 04/20/2020 10:14 PM RADIATION DOSE METRICS: Total DLP (mGy-cm): 361.6 FINDINGS: Right common carotid artery: No stenosis. No dissection or occlusion. Right internal carotid artery: No stenosis of the extracranial segment. No dissection or occlusion. Right external carotid artery: No occlusion or stenosis of the origin. Left common carotid artery: No stenosis. No dissection or occlusion. Left internal carotid artery: No stenosis of the extracranial segment. No dissection or occlusion. Left external carotid artery: No occlusion or stenosis of the origin. Right vertebral artery: No stenosis. No dissection or occlusion. Left vertebral artery: No stenosis. No dissection or occlusion. Teeth: Dental caries and impacted wisdom teeth are noted incidentally. Soft tissues: Normal. No significant soft tissue swelling. Bones/joints: No acute fracture identified. Lungs: Partially visualized scarring or atelectasis in the posterior right upper lobe. [facility] [id number] IMPRESSION: No significant abnormality involving the major intracranial arteries. IMPRESSION: No acute arterial abnormality identified in the neck. REFERENCES: NASCET CRITERIA. The degree of stenosis in the cervical segment of the internal carotid artery is based on NASCET criteria. Normal is no stenosis. Mild is less than 50% stenosis. Moderate is 50-69% stenosis. Severe is 70% to 99% stenosis. Total occlusion is no detectable patent lumen.
[2025-03-05 16:14] LABS: Basophils % 0.6 %; Eosinophils # 0.1 10^3/uL (0.0-0.8); Eosinophils % 1.6 %; Lymphocytes # 1.2 10^3/uL (0.8-4.8); Mean Corpuscular HGB Conc 33.4 g/dL (30-55); Mean Corpuscular Volume 89.9 fl (82-101); Mean Platelet Volume 8.9 fL (7.4-10.4); Monocytes # 0.5 10^3/uL (0.2-0.9); Monocytes % 9.6 %; Neutrophils # 3.34 10^3/uL (1.8-7.7); Nucleated Red Blood Cells % 0 %; Platelet Count 247 10^3/cmm (157-399); Red Blood Count 5.23 10^6/uL (3.85-5.65); Red Cell Distribution Width 11.8 % (12.1-15.1); White Blood Count 5.13 10^3/uL (3.29-11.43)
[2025-03-05 16:30] LABS: Alanine Aminotransferase 10 U/L (0-41); Albumin Level 4.8 g/dL (3.5-5.2); Alkaline Phosphatase 69 U/L (40-130); Anion Gap 13.6 (5-19); Aspartate Amino Transferase 15 U/L (0-40); Blood Urea Nitrogen 11 mg/dL (6-20); Carbon Dioxide 28 mmol/L (22-29); Chloride 102 mmol/L (98-107); Creatinine Clr Calc Pharmacy 131.2522; Globulin 2.8 g/dL (1.3-4.6); Glomerular Filtration Rate 113.5 mL/min (90-130); Glucose 110 mg/dL (65-115); Osmolality Calculated 290 mOsm/kg (285-295); Potassium 3.6 mmol/L (3.5-5.1); Sodium 140 mmol/L (136-145); Total Bilirubin 0.3 mg/dL (0.15-1.2); Total Protein 7.6 g/dL (6.6-8.7)
[2025-03-05] MEDS: iohexol 350 mg/mL 500 mL Btl (per mL) IV (16:37)
[2025-03-05 17:22] VITALS: BP 133/83; PULSE 77; O2SAT 96
== END 2025-03-05 17:23 | disposition home or self-care (01) ==
PROVIDERS: Physician Assistant; Emergency Provider Physician Assistant; PCP Family Medicine
DX: R20.2 Paresthesia of skin (principal); F17.290 Nicotine dependence, other tobacco product, uncomplicated
CPT/HCPCS: 36415; 70450; 70496; 70498; 80053; 85025; 99285